=== PATIENT | female | born 1990 | race Caucasian/White ===

== ENCOUNTER 2016-04-10 12:39 | Emergency (ER) | payer OTHER ==
[~2016-04-10] VITALS: Ht 167.6 cm; Wt 70.9 kg
[~2016-04-10 12:39] MED LIST: BUSP-8 PO; OXYC5TAB PO; VENL25TA2 PO
[2016-04-10 12:44] VITALS: TEMP 36.9; Ht 167.6 cm; Wt 70.9 kg
[2016-04-10] MEDS ORDERED: SODIUM CHLORIDE 0.9% 1000ML 1,000 ML IV STA (13:21)
[2016-04-10] MEDS ORDERED: ONDANSETRON INJ 2 MG/ML 2 ML VIAL IV STA (13:21)
[2016-04-10] MEDS ORDERED: KETOROLAC TROMETHAMINE 30 MG/ML VIAL IV STA (13:21)
[2016-04-10] MEDS ORDERED: MoRPHine SULFATE 4 MG/ML 1 ML CARP\\VIAL IV PRN (13:30)
[2016-04-10 13:53] LABS: BASO % 0.1 %; BASO ABS # 0.01 K/uL (0-0.2); COMPLETE YES; EOS % 1.5 %; HEMATOCRIT 41.9 % (37-47); IG% 0.2 %; LYMPH % 28.4 %; LYMPH ABS # 2.48 K/uL (1.2-3.4); MEAN CELL VOLUME 81.5 fL (80-100); MEAN CORPUSCULAR HEMOGLOBIN 26.7 pg (25-34); MEAN CORPUSCULAR HGB CONC 32.7 g/dl (32-36); MEAN PLATELET VOLUME 11.2 fL (7.4-10.4); MONO % 4.1 %; NEUT % 65.7 %; PLATELET COUNT 208 K/uL (130-400); RED BLOOD COUNT 5.14 M/uL (4.2-5.4); WHITE BLOOD COUNT 8.74 K/uL (4.8-10.8)
[2016-04-10 14:10] LABS: BUN/CREATININE RATIO 9.5 (10-20); CREATININE 0.6 mg/dl (0.60-1.20); POTASSIUM 3.9 mmol/L (3.5-5.1)
[2016-04-10] MEDS ORDERED: KETOROLAC TROMETHAMINE 10 MG TAB PO STA (15:28)
[2016-04-10] MEDS ORDERED: PERCOCET HOME PACK PO ONE (15:30)
--- NOTE | 2016-04-10 15:32 | EMERGENCY ROOM VISIT NOTE ---
History Report prepared by Dimitri: Kevin Moreau Under the Supervision of: Dr. Mich Medel D.O. First contact with patient: 13:18 Chief Complaint: ABDOMINAL PAIN Stated Complaint: CRAMPS, HEAVY BLEEDING Nursing Triage Summary: Triage note: pt reports abd cramping and "the pain is also in my lower back, i got my menstral cycle yesterday." History of Present Illness The patient is a 25 year old female who presents to the Emergency Room with complaints of persistent abdominal pain that started yesterday. The patient also complains of heavy bleeding from her menstrual cycle that started yesterday. The patient describes the abdominal pain as cramps that feel like contractions. She notes that this pain in her lower abdomen radiates to her lower back. She denies chance of and notes that she is on time for her regular menstrual cycle noting her last normal menstrual period was a month ago. She notes that the discomfort is worsened by moving and relieved by lying down in the same position. She tried taking pain relievers without any relief of her symptoms. The patient has an appointment with her [employer] Lap Tender tomorrow morning but she presented to the ED today to manage her symptoms. Source of History: patient Onset: yesterday Position: abdomen Quality: cramping ("contractions") Timing: other (persistent) Modifying Factors (Worsening): movement Modifying Factors (Relieving): rest (lying down - same position) Associated Symptoms: + back pain (radiation to lower back) Note: Other associated symptoms: heavy vaginal bleeding Denies: Review of Systems See HPI for pertinent positives & negatives. A total of 10 systems reviewed and were otherwise negative. Past Medical & Surgical Medical Problems: (1) 25 weeks gestation of (2) 40 weeks gestation of (3) Abscess of right thigh (4) Active labor at term (5) Acute bronchitis (6) ASTHMA, UNSPECIFIED (7) Dysmenorrhea (8) Dysmenorrhea (9) Encounter for sterilization (10) FX SACRUM/COCCYX-CLOSED (11) HIDRADENITIS (12) HISTORY OF TOBACCO USE (13) Intrauterine (14) Left leg injury (15) Left leg injury (16) Low back pain with sciatica (17) Low back pain with sciatica (18) Migraine headache (19) Migraine headache (20) Migraine headache (21) MIGRAINE UNSPECIFIED W/O INTRACT MGRN W/O STATUS MIGRAINOSUS (22) OVARIAN CYST NEC/NOS (23) Pelvic pressure in (24) Placenta previa (25) Placenta previa antepartum in second trimester (26) Supervision of other normal (27) Uterine contractions (28) Vaginal bleeding during , antepartum Surgical Problems: (1) Carpal tunnel syndrome of right wrist (2) Foreign body of leg, right, superficial Family History Diabetes mellitus Hypertension Kidney disease Kidney stones Social History Smoking Status: Current Every Day Smoker Alcohol Use: none Drug Use: none Marital Status: in relationship Occupation Status: unemployed Current/Historical Medications No Active Prescriptions or Reported Meds Allergies Coded Allergies: Nitrofurantoin (Verified Allergy, Severe, DIFFICULTY BREATHING, 04/10/16) Sumatriptan (Verified Allergy, Severe, sob,tachycardia,elevated bp, ) Trazodone (Verified Allergy, Mild, ITCHING SENSATION, 04/10/16) Sulfa Antibiotics (Verified Adverse Reaction, Mild, NAUSEA, 04/10/16) Physical Exam Vital Signs Date Time Temp Pulse Resp B/P Pulse Ox O2 Delivery O2 Flow Rate FiO2 04/10/16 14:33 71 18 102/63 98 Room Air 04/10/16 12:44 36.9 100 18 94/69 100 Room Air Physical Exam CONSTITUTIONAL/VITAL SIGNS: Reviewed / noted above. GENERAL: Non-toxic in appearance. INTEGUMENTARY: Warm, dry, and [place]. HEAD: Normocephalic. EYES: without scleral icterus or trauma. ENT/OROPHARYNX: clear and moist. LYMPHADENOPATHY/NECK: Is supple without lymphadenopathy or meningismus. RESPIRATORY: Lungs clear and equal. CARDIOVASCULAR: Regular rate and rhythm. GI/ABDOMEN: Mild tenderness to left lower quadrant. No organomegaly or pulsatile mass. No rebound or guarding. Normal bowel sounds. EXTREMITIES: Warm and well perfused. BACK: No CVA tenderness. NEUROLOGICAL: Intact without focal deficits. PSYCHIATRIC: normal affect. MUSCULOSKELETAL: Normally developed with good muscle tone. Medical Decision & Procedures Laboratory Results 04/10/16 13:42 Red Blood Count 5.14, Mean Corpuscular Volume 81.5, Mean Corpuscular Hemoglobin 26.7, Mean Corpuscular Hemoglobin Concent 32.7, Mean Platelet Volume 11.2, Neutrophils (%) (Auto) 65.7, Lymphocytes (%) (Auto) 28.4, Monocytes (%) (Auto) 4.1, Eosinophils (%) (Auto) 1.5, Basophils (%) (Auto) 0.1, Neutrophils # (Auto) 5.74, Lymphocytes # (Auto) 2.48, Monocytes # (Auto) 0.36, Eosinophils # (Auto) 0.13, Basophils # (Auto) 0.01 04/10/16 13:42 Test 04/10/16 13:42 White Blood Count 8.74 K/uL (4.8-10.8) Red Blood Count 5.14 M/uL (4.2-5.4) Hemoglobin 13.7 g/dL (12.0-16.0) Hematocrit 41.9 % (37-47) Mean Corpuscular Volume 81.5 fL (80-100) Mean Corpuscular Hemoglobin 26.7 pg (25-34) Mean Corpuscular Hemoglobin Concent 32.7 g/dl (32-36) Platelet Count 208 K/uL (130-400) Mean Platelet Volume 11.2 fL (7.4-10.4) Neutrophils (%) (Auto) 65.7 % Lymphocytes (%) (Auto) 28.4 % Monocytes (%) (Auto) 4.1 % Eosinophils (%) (Auto) 1.5 % Basophils (%) (Auto) 0.1 % Neutrophils # (Auto) 5.74 K/uL (1.4-6.5) Lymphocytes # (Auto) 2.48 K/uL (1.2-3.4) Monocytes # (Auto) 0.36 K/uL (0.11-0.59) Eosinophils # (Auto) 0.13 K/uL (0-0.5) Basophils # (Auto) 0.01 K/uL (0-0.2) RDW Standard Deviation 43.3 fL (36.4-46.3) RDW Coefficient of Variation 14.5 % (11.5-14.5) Immature Granulocyte % (Auto) 0.2 % Immature Granulocyte # (Auto) 0.02 K/uL (0.00-0.02) Urine Test NEG (NEG) Anion Gap 11.0 mmol/L (3-11) Est Creatinine Clear Calc Drug Dose 134.1 ml/min Estimated GFR () 146.8 Estimated GFR (Non- 126.7 BUN/Creatinine Ratio 9.5 (10-20) Calcium Level 9.0 mg/dl (8.5-10.1) Laboratory results as stated above per my review. Medications Administered Medications (Trade) Dose Ordered Sig/Cory Route Start Time Stop Time Status Last Admin Dose Admin Sodium Chloride (Nss 1000ml) 1,000 ml @ 999 mls/hr Q1H1M STAT IV 04/10/16 13:21 04/10/16 14:21 DC 04/10/16 13:52 999 MLS/HR Ondansetron HCl (Zofran Inj) 4 mg NOW STAT IV 04/10/16 13:21 04/10/16 13:23 DC 04/10/16 13:52 4 MG Ketorolac Tromethamine (Toradol Inj) 30 mg NOW STAT IV 04/10/16 13:21 04/10/16 13:23 DC 04/10/16 13:53 30 MG Morphine Sulfate (MoRPHine SULFATE INJ) 4 mg Q1H PRN IV 04/10/16 13:30 04/24/16 13:29 04/10/16 14:33 4 MG ED Course 1315: Previous medical records were reviewed. The patient was evaluated in room C1. A complete history and physical examination was performed. 1321: Ordered Toradol Inj 30 mg IV, Zofran Inj 4 mg IV, NSS 1000 ml @ 999 mls/ hr IV. 1330: Ordered Morphine Sulfate 4 mg IV/pain. 1526: On reevaluation, the patient is resting comfortably. I discussed the results and findings with the patient. She verbalized agreement of the treatment plan. She was discharged home. Medical Decision Differential diagnosis: Etiologies such as ectopic , dysfunction uterine bleeding, bleeding dyscrasia, trauma, infection, as well as others were entertained. Is a 25-year-old female who presents to the ED with a chief complaint of bad menstrual cramps. The patient states that her symptoms started yesterday. She reports a history of tubal ligation. Her last menstrual period was about one month ago exactly. Her vital signs are stable. Her physical exam was unremarkable. CBC and PRP are normal. She is not . The patient was treated with IV Toradol and IV morphine. She has an appointment to see her trapeze performer tomorrow. She is felt to be stable for discharge. Impression Primary Impression: Abnormal uterine bleeding Scribe Attestation The scribe's documentation has been prepared under my direction and personally reviewed by me in its entirety. I confirm that the note above accurately reflects all work, treatment, procedures, and medical decision making performed by me. Departure Information Dispostion Home / Self-Care Prescriptions No Active Prescriptions or Reported Meds Referrals Kin Lutz M.D. (PCP) Forms HOME CARE DOCUMENTATION FORM, IMPORTANT VISIT INFORMATION Patient Instructions My [facility] Additional Instructions See your trapeze performer tomorrow as scheduled.
[2016-04-10] MEDS ORDERED: KETOROLAC TROMETHAMINE 10 MG TAB PO ONE (16:04)
[2016-04-10 16:33] VITALS: BP 94/58; PULSE 58; O2SAT 97
[2016-07-17] MEDS ORDERED: ABL/5 PO (11:48)
== END 2016-04-10 16:34 | disposition home or self-care (01) ==
LOC: C.EDB 12:40 → C.EDC 16:34
DX: N93.9 Abnormal uterine and vaginal bleeding, unspecified (principal); F17.200 Nicotine dependence, unspecified, uncomplicated; J45.909 Unspecified asthma, uncomplicated

== ENCOUNTER → 2016-04-21 | Outpatient (CLI) | payer OTHER ==
[~2016-04-21] MED LIST changes: +ABL/5 PO; +ACET-1256 PO; +AMOX875T PO; -BUSP-8 PO; +CEPH500C PO; +CEPH500C2 PO; +CLIN300C2 PO; +CYCL10TA6 PO; +IBUP-1427 PO; -OXYC5TAB PO; -VENL25TA2 PO
--- NOTE | 2016-04-21 12:51 | MAMMOGRAPHY REPORT ---
ULTRASOUND OF RIGHT BREAST: 04/21/2016 CLINICAL HISTORY: The patient reports a history of surgery involving her right subareolar region due to an abscess in 2012. She reports a lump under her right nipple as well as whitish nipple dischar ge. She reports that she had some of her discharge tested one month ago which yielded staph bacteri a and she was placed on antibiotics. She denies any breast erythema. COMPARISON: Prior ultrasound dated 11/12/2011. TECHNIQUE: Real-time targeted ultrasound of the right breast was performed. FINDINGS: Real-time, high resolution targeted ultrasound was performed of the subareolar breast inc luding the area of the palpable lump pointed out by the patient, in the right 2 to 3:00 subareolar b reast. At the site of the palpable lump pointed out by the patient in the left 2 to 3:00 subareolar breast, there is thickening of the areola as well as a small oval hypoechoic circumscribed 6 x 2 x 5 mm mass which appears to be within the areola. No internal vascularity is seen within the mass. This is located at the site of the patient's scar from her prior surgery for an abscess. The mass i s benign and may represent a small residual postsurgical fluid collection versus a small abscess. N o mass or fluid collection is seen within the underlying breast parenchyma. IMPRESSION: ACR BI-RADS CATEGORY 2: BENIGN Thickening of the areola in the right 2 to 3:00 subareolar breast at the site of prior surgery. An associated oval 6 mm hypoechoic mass is seen within the areola, which is benign and may represent po stsurgical changes such as a small residual postsurgical fluid collection; alternatively this could represent a small abscess, given the history of recent nipple discharge yielding Staph bacteria. Re commend clinical follow-up. There is no sonographic evidence of malignancy. Jerilyn Fontanez M.D. ah/:04/21/2016 12:38:25 Attending Technologist: Bradly HERNANDEZ)(M), [facility] Database Technician: Jerilyn Fontanez MD, [facility] letter sent: Normal 1/2 BI-RADS Code: ACR BI-RADS Category 2: Benign
== END | disposition home or self-care (01) ==
LOC: C.MAMM 10:48
PROVIDERS: ATTEND Family Medicine
DX: N63 Unspecified lump in breast (principal); N64.52 Nipple discharge

== ENCOUNTER 2016-05-21 18:13 | Emergency (ER) | payer OTHER ==
[~2016-05-21] VITALS: Ht 167.6 cm; Wt 70.8 kg
[2016-05-21 18:16] VITALS: BP 125/78; PULSE 80; TEMP 37.1; O2SAT 98; Ht 167.6 cm; Wt 70.8 kg
[2016-05-21] MEDS ORDERED: ACET-1256 PO (18:26)
[2016-05-21] MEDS ORDERED: CEPHALEXIN MONOHYDRATE 250 MG CAP PO ONE (18:45)
--- NOTE | 2016-05-21 18:53 | EMERGENCY ROOM VISIT NOTE ---
ED Visit Note First contact with patient: 18:28 CHIEF COMPLAINT: Infection on the right upper thigh HISTORY OF PRESENT ILLNESS: This 26-year-old female presents the ER with chief complaint of a lump which is erythematous on the upper medial aspect of her right thigh. The patient states that she noticed it 3 days ago. She denies any drainage from it. She has had these in the past. REVIEW OF SYSTEMS: 6 system review was performed and was negative unless stated otherwise in history of present illness. PMH: The patient is healthy; tubal ligation SOCIAL HISTORY: Patient admits to tobacco use but denies any alcohol use PHYSICAL EXAM: Vital Signs: Were reviewed Reviewed Nurse's notes. GEN.: Positional white female appears in no acute distress. MENTAL STATUS: Alert and oriented 3. RIGHT THIGH: On the upper inner thigh there is an erythematous firm lump which measures approximately 2 cm x 1 cm. There is no central fluctuance, pointing or drainage. There is no surrounding erythema. EMERGENCY DEPARTMENT COURSE: The patient was evaluated. I informed the patient that at this point there is no central fluctuance therefore we will not be draining the small abscess. The patient verbalized understanding. The patient is given Keflex 500 mg while in the ER. DIAGNOSIS: Abscess of the right groin DISCHARGE INSTRUCTIONS & TREATMENT: Warm compresses 20 minutes several times a day. Ibuprofen 600 mg every 6 hours with food for pain. Take Keflex as prescribed. If symptoms persist or worsen, return to ER. Problem List Medical Problems: (1) 40 weeks gestation of Status: Resolved (2) Abscess of right thigh Status: Resolved (3) Active labor at term Status: Resolved (4) Acute bronchitis Status: Resolved (5) ASTHMA, UNSPECIFIED Status: Chronic (6) Dysmenorrhea Status: Resolved (7) Dysmenorrhea Status: Resolved (8) FX SACRUM/COCCYX-CLOSED Status: Resolved (9) HIDRADENITIS Status: Chronic (10) HISTORY OF TOBACCO USE Status: Chronic (11) Intrauterine Status: Resolved (12) Left leg injury Status: Resolved (13) Left leg injury Status: Resolved (14) Low back pain with sciatica Status: Resolved (15) Low back pain with sciatica Status: Chronic (16) Migraine headache Status: Resolved (17) Migraine headache Status: Resolved (18) Migraine headache Status: Chronic (19) MIGRAINE UNSPECIFIED W/O INTRACT MGRN W/O STATUS MIGRAINOSUS Status: Resolved (20) OVARIAN CYST NEC/NOS Status: Resolved (21) Supervision of other normal Status: Resolved (22) Uterine contractions Status: Resolved Surgical Problems: (1) Carpal tunnel syndrome of right wrist Status: Resolved (2) Foreign body of leg, right, superficial Status: Resolved Current/Historical Medications Scheduled Acetaminophen (Tylenol), 1,000 MG PO Q6 Allergies Coded Allergies: Nitrofurantoin (Verified Allergy, Severe, DIFFICULTY BREATHING, 04/10/16) Sumatriptan (Verified Allergy, Severe, sob,tachycardia,elevated bp, ) Trazodone (Verified Allergy, Mild, ITCHING SENSATION, 04/10/16) Sulfa Antibiotics (Verified Adverse Reaction, Mild, NAUSEA, 04/10/16) Vital Signs Date Time Temp Pulse Resp B/P Pulse Ox O2 Delivery O2 Flow Rate FiO2 05/21/16 18:16 37.1 80 18 125/78 98 Room Air Medications Administered Medications (Trade) Dose Ordered Sig/Cory Route Start Time Stop Time Status Last Admin Dose Admin Cephalexin Monohydrate (Keflex Cap) 500 mg NOW ONCE PO 05/21/16 18:45 05/21/16 18:46 DC 05/21/16 18:39 500 MG Departure Information Referrals No Doctor, Assigned (PCP) Patient Instructions [facility]
[2016-05-21] MEDS ORDERED: CEPH500C2 PO (18:54)
[2016-07-17] MEDS ORDERED: ABL/5 PO (11:48)
== END 2016-05-21 19:07 | disposition home or self-care (01) ==
LOC: C.EDB 18:13 → C.EDD 19:07
DX: L02.214 Cutaneous abscess of groin (principal); J45.909 Unspecified asthma, uncomplicated

== ENCOUNTER 2016-05-27 11:46 | Emergency (ER) | payer OTHER ==
[~2016-05-27] VITALS: Ht 167.6 cm; Wt 69.8 kg
[~2016-05-27 11:46] MED LIST changes: -ABL/5 PO; -AMOX875T PO; -CEPH500C PO; -CLIN300C2 PO; -CYCL10TA6 PO; -IBUP-1427 PO
[2016-05-27 11:47] VITALS: BP 131/90; TEMP 36.8; Ht 167.6 cm; Wt 69.8 kg
[2016-05-27] MEDS ORDERED: CYCL10TA6 PO (12:21)
[2016-05-27] MEDS ORDERED: IBUP-1427 PO (12:21)
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
[2016-05-27] MEDS ORDERED: CYCLOBENZAPRINE HCL 5 MG TAB PO ONE (12:30)
[2016-05-27 12:36] VITALS: PULSE 98; O2SAT 98
[2016-07-17] MEDS ORDERED: ABL/5 PO (11:48)
== END 2016-05-27 12:36 | disposition home or self-care (01) ==
LOC: C.EDB 11:47 → C.EDD 12:36
DX: S39.012A Strain of muscle, fascia and tendon of lower back, initial encounter (principal); V47.5XXA Car driver injured in collision with fixed or stationary object in traffic accident, initial encounter; G89.29 Other chronic pain; J45.909 Unspecified asthma, uncomplicated; Z83.3 Family history of diabetes mellitus; Z82.49 Family history of ischemic heart disease and other diseases of the circulatory system; F17.210 Nicotine dependence, cigarettes, uncomplicated

== ENCOUNTER 2016-05-29 09:09 | Emergency (ER) | payer OTHER ==
[~2016-05-29] VITALS: Ht 167.6 cm; Wt 69.7 kg
[~2016-05-29 09:09] MED LIST changes: +CYCL10TA6 PO; +IBUP-1427 PO
[2016-05-29 09:14] VITALS: TEMP 36.6; Ht 167.6 cm; Wt 69.7 kg
[2016-05-29] MEDS ORDERED: OXYCODONE HCL IR 5 MG TAB (IMMEDIATE RELEASE) PO STA (09:33)
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
[2016-05-29 10:03] LABS: URINE APPEARANCE CLOUDY (CLEAR); URINE BILIRUBIN NEG (NEG); URINE COLOR YELLOW; URINE EPITHELIAL CELL AUTO >30 /lpf (0-5); URINE NITRITE NEG (NEG); URINE PH 6.5 (4.5-7.5); UROBILINOGEN NEG (NEG)
[2016-05-29 10:12] LABS: MANUAL MICROSCOPIC REQUIRED? NO; REVIEW REQ? NO
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
[2016-05-29 11:37] VITALS: BP 90/60; PULSE 66; O2SAT 100
[2016-05-29] MEDS ORDERED: OXYCODONE IR HOME PACK PO ONE (11:45)
[2016-07-17] MEDS ORDERED: ABL/5 PO (11:48)
== END 2016-05-29 11:37 | disposition home or self-care (01) ==
LOC: C.EDB 09:11
DX: S39.012D Strain of muscle, fascia and tendon of lower back, subsequent encounter (principal); V89.2XXD Person injured in unspecified motor-vehicle accident, traffic, subsequent encounter; G89.29 Other chronic pain; Z98.51 Tubal ligation status; J45.909 Unspecified asthma, uncomplicated; Z83.3 Family history of diabetes mellitus; Z82.49 Family history of ischemic heart disease and other diseases of the circulatory system; F17.210 Nicotine dependence, cigarettes, uncomplicated

== ENCOUNTER 2016-07-03 19:04 | Emergency (ER) | payer OTHER ==
[~2016-07-03] VITALS: Ht 167.6 cm; Wt 69.6 kg
[~2016-07-03 19:04] MED LIST changes: -CEPH500C2 PO; -CYCL10TA6 PO
[2016-07-03 19:10] VITALS: TEMP 37.1; Ht 167.6 cm; Wt 69.6 kg
[2016-07-03] MEDS ORDERED: CLINDAMYCIN HCL 150 MG CAP PO ONE (19:30)
[2016-07-03] MEDS ORDERED: CEPH500C PO (19:37)
[2016-07-03] MEDS ORDERED: CLIN300C2 PO (19:37)
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
[2016-07-03 19:44] VITALS: BP 106/87; PULSE 88; O2SAT 97
[2016-07-17] MEDS ORDERED: ABL/5 PO (11:48)
== END 2016-07-03 19:40 | disposition home or self-care (01) ==
LOC: EDUNIT# 19:04 → C.EDB 19:07 → C.EDA 19:40
DX: L02.215 Cutaneous abscess of perineum (principal); L73.9 Follicular disorder, unspecified; J45.909 Unspecified asthma, uncomplicated; M54.5 Low back pain; G89.29 Other chronic pain; G43.909 Migraine, unspecified, not intractable, without status migrainosus; Z72.0 Tobacco use

== ENCOUNTER → 2016-07-11 | Outpatient (CLI) | payer OTHER ==
[~2016-07-11] MED LIST changes: +ABL/5 PO; +AMOX875T PO; +CEPH500C PO; +CLIN300C2 PO
[2016-07-11 17:40] LABS: HEMATOCRIT 42.2 % (37-47); MEAN CELL VOLUME 86.7 fL (80-100); MEAN CORPUSCULAR HEMOGLOBIN 27.5 pg (25-34); MEAN CORPUSCULAR HGB CONC 31.8 g/dl (32-36); MEAN PLATELET VOLUME 11.8 fL (7.4-10.4); PLATELET COUNT 241 K/uL (130-400); RED BLOOD COUNT 4.87 M/uL (4.2-5.4); WHITE BLOOD COUNT 7.67 K/uL (4.8-10.8)
[2016-07-11 17:50] LABS: PROTHROMBIN TIME (PATIENT) 10.7 SECONDS (9.0-12.0)
[2016-07-11 17:53] LABS: POTASSIUM 3.8 mmol/L (3.5-5.1)
== END | disposition home or self-care (01) ==
LOC: C.LABPVFM 11:12
PROVIDERS: ATTEND Plastic Surgery
DX: Z01.812 Encounter for preprocedural laboratory examination (principal); Z01.818 Encounter for other preprocedural examination

== ENCOUNTER → 2016-07-19 | Outpatient (CLI) | payer OTHER ==
[~2016-07-19] MED LIST changes: -ACET-1256 PO; -IBUP-1427 PO
== END | disposition home or self-care (01) ==
LOC: C.LABPVFM 09:14
PROVIDERS: ATTEND Family Medicine
DX: R39.9 Unspecified symptoms and signs involving the genitourinary system (principal)

== ENCOUNTER 2016-07-24 16:55 | Emergency (ER) | payer OTHER ==
[~2016-07-24] VITALS: Ht 167.6 cm; Wt 69.0 kg
[~2016-07-24 16:55] MED LIST changes: -AMOX875T PO; -CEPH500C PO; -CLIN300C2 PO
[2016-07-24 16:59] VITALS: Ht 167.6 cm; Wt 69.0 kg
--- NOTE | 2016-07-24 17:52 | EMERGENCY ROOM VISIT NOTE ---
History Report prepared by Dimitri: Wilfredo Cadet Under the Supervision of: Dr. Leena Lyles M.D. First contact with patient: 17:38 Chief Complaint: WOUND INFECTION Stated Complaint: INFECTION IN RT BREAST Nursing Triage Summary: pt verbalizes "i have a staff infection in my right breast, i have green discharge coming out of my nipple, its red, and swollen". Pt verbalizes hx of staff infection in breast in 2013, similar symptoms. History of Present Illness The patient is a 26 year old female who presents to the Emergency Room with complaints of persistent right breast pain beginning several hours prior to arrival. She currently rates her discomfort as an 8/10 in severity. The patient complains of green, bloody, smelly discharge from her right breast. She states she was sitting on the couch and experienced burning in her right breast. The patient notes she looked in her shirt and noticed the discharge. She states she has a history of surgery on her right breast for a cyst removal in 2012. The patient notes during the procedure they left a pocket. She states she has a history of a staph infection. The patient denies breast feeding at this time. She notes she just got off a seven day course of Keflex prescribed by her PCP for a possible bladder or kidney infection. The patient states she is still experiencing urinary symptoms at this time. She denies a fever. 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 A total of 6 systems reviewed and were otherwise negative. Past Medical & Surgical Medical Problems: (1) 25 weeks gestation of (2) 40 weeks gestation of (3) Abscess of right thigh (4) Active labor at term (5) Acute bronchitis (6) ASTHMA, UNSPECIFIED (7) Dysmenorrhea (8) Dysmenorrhea (9) Encounter for sterilization (10) FX SACRUM/COCCYX-CLOSED (11) HIDRADENITIS (12) HISTORY OF TOBACCO USE (13) Intrauterine (14) Left leg injury (15) Left leg injury (16) Low back pain with sciatica (17) Low back pain with sciatica (18) Migraine headache (19) Migraine headache (20) Migraine headache (21) MIGRAINE UNSPECIFIED W/O INTRACT MGRN W/O STATUS MIGRAINOSUS (22) OVARIAN CYST NEC/NOS (23) Pelvic pressure in (24) Placenta previa (25) Placenta previa antepartum in second trimester (26) Supervision of other normal (27) Uterine contractions (28) Vaginal bleeding during , antepartum Surgical Problems: (1) Carpal tunnel syndrome of right wrist (2) Foreign body of leg, right, superficial Family History Diabetes mellitus Hypertension Kidney disease Kidney stones Social History Smoking Status: Current Every Day Smoker Alcohol Use: none Drug Use: none Marital Status: in relationship Occupation Status: unemployed Current/Historical Medications Scheduled Aripiprazole (Abilify), 5 MG PO HS Clindamycin Hcl (Cleocin), 300 MG PO TID Allergies Coded Allergies: Nitrofurantoin (Verified Allergy, Severe, DIFFICULTY BREATHING, 07/17/16) Sumatriptan (Verified Allergy, Severe, sob,tachycardia,elevated bp, 07/17/16 ) Trazodone (Verified Allergy, Mild, ITCHING SENSATION, 07/17/16) Sulfa Antibiotics (Verified Adverse Reaction, Mild, NAUSEA, 07/17/16) Physical Exam Vital Signs Date Time Temp Pulse Resp B/P Pulse Ox O2 Delivery O2 Flow Rate FiO2 07/24/16 19:39 89 18 98 Room Air 07/24/16 19:37 36.8 91 18 113/75 98 07/24/16 16:59 36.8 91 18 113/75 98 Room Air Physical Exam Vital signs reviewed. General: Well-appearing female, in no significant distress. HEENT: No scleral icterus, PERRLA, neck supple. Atraumatic. Chest: Right breast has some minimal post-surgical change to the medial nipple line. No significant erythema or fluctuance appreciated. Patient is able to express a serosanguineous fluid with significant effort. Musculoskeletal: Atraumatic, no peripheral edema. Neurologic: Patient awake alert and oriented x 3. Skin: Warm, dry, no rash Medical Decision & Procedures Laboratory Results Test 07/24/16 18:15 Urine Color YELLOW Urine Appearance CLEAR (CLEAR) Urine pH 7.0 (4.5-7.5) Urine Specific [place] 1.018 (1.000-1.030) Urine Protein NEG (NEG) Urine Glucose (UA) NEG (NEG) Urine Ketones NEG (NEG) Urine Occult Blood TRACE (NEG) Urine Nitrite NEG (NEG) Urine Bilirubin NEG (NEG) Urine Urobilinogen NEG (NEG) Urine Leukocyte Esterase NEG (NEG) Urine WBC (Auto) 1-5 /hpf (0-5) Urine RBC (Auto) 5-10 /hpf (0-4) Urine Hyaline Casts (Auto) 1-5 /lpf (0-5) Urine Epithelial Cells (Auto) >30 /lpf (0-5) Urine Bacteria (Auto) NEG (NEG) Urine Test NEG (NEG) Laboratory results per my review. ED Course 1739: Past medical records reviewed. The patient was evaluated in room B5. A complete history and physical examination was performed. 1914: Upon reevaluation, the patient appeared to have improvement of her symptoms. I discussed findings with her. She verbalized agreement of the treatment plan. The patient was discharged home. Medical Decision The differential diagnoses include but are not limited to: mastitis, cellulitis , folliculitis. This patient was evaluated and appeared to be in no significant distress. Physical examination reveals some discharge from the right nipple after significant efforts at express again. A culture was obtained. The patient recently completed a course of Keflex. She will be placed on clindamycin pending wound cultures. She has follow-up appointment with breast surgery, Dr. Shah. She will return to the ER for worsening of symptoms or any medical concerns. Impression Primary Impression: Breast discharge Scribe Attestation The scribe's documentation has been prepared under my direction and personally reviewed by me in its entirety. I confirm that the note above accurately reflects all work, treatment, procedures, and medical decision making performed by me. Departure Information Dispostion Home / Self-Care Prescriptions Clindamycin Hcl (CLEOCIN) 300 Mg Cap 300 MG PO TID for 7 Days, #21 CAP Prov: Leena Lyles M.D. 07/24/16 Referrals Alex Phelps M.D. (PCP) Forms HOME CARE DOCUMENTATION FORM, IMPORTANT VISIT INFORMATION, WORK / SCHOOL INSTRUCTIONS Patient Instructions My [facility] Additional Instructions Diagnosis: Breast discharge Clindamycin 300 mg three times daily for 7 days. Warm compresses Follow up with Dr Shah Return to emergency for worsening of symptoms or any medical concerns.
[2016-07-24 18:40] LABS: URINE APPEARANCE CLEAR (CLEAR); URINE BILIRUBIN NEG (NEG); URINE COLOR YELLOW; URINE EPITHELIAL CELL AUTO >30 /lpf (0-5); URINE NITRITE NEG (NEG); URINE SPECIFIC GRAVITY 1.018 (1.000-1.030); UROBILINOGEN NEG (NEG); ZZUR CULT IF INDIC CLEAN CATCH NO
[2016-07-24 18:42] LABS: MANUAL MICROSCOPIC REQUIRED? NO; REVIEW REQ? NO
[2016-07-24] MEDS ORDERED: CLIN300C2 PO (18:49)
[2016-07-24 19:37] VITALS: BP 113/75; TEMP 36.8
[2016-07-24 19:39] VITALS: PULSE 89; O2SAT 98
== END 2016-07-24 19:38 | disposition home or self-care (01) ==
LOC: C.EDB 16:55
DX: N64.52 Nipple discharge (principal); J45.909 Unspecified asthma, uncomplicated; G43.909 Migraine, unspecified, not intractable, without status migrainosus; Z83.3 Family history of diabetes mellitus; Z82.49 Family history of ischemic heart disease and other diseases of the circulatory system; Z84.1 Family history of disorders of kidney and ureter; F17.210 Nicotine dependence, cigarettes, uncomplicated

== ENCOUNTER → 2016-08-01 | Day surgery (SDC) | payer OTHER ==
[2016-07-17 11:48] VITALS: Ht 167.6 cm; Wt 68.2 kg
[~2016-08-01] VITALS: Ht 167.6 cm; Wt 68.2 kg
[~2016-08-01] MED LIST changes: +ACETAMINOPHEN 325 MG TAB PO PRN; +AMOX875T PO; +ATROPINE SULFATE 0.1 MG/ML 5ML SYR IV PRN; +BUPIVACAINE 0.25% 2.5MG/ML PF 10 ML VIAL INFIL ONE; +CEFAZOLIN 2000 MG/60 ML D5W IV SCH; +CEPH500C PO; +CLIN300C2 PO; +DEXAMETHASONE SOD INJ 4 MG/ML VIAL ONE; +EpHEDrine SULFATE INJ 50 MG/ML AMP IV PRN; +FENTANYL CITRATE INJ 50 MCG/1 ML 2 ML VIAL IV PRN; +FENTANYL CITRATE INJ 50 MCG/1 ML 2 ML VIAL ONE; +LACTATED RINGER'S 1000ML 1,000 ML IV SCH; +LIDOCAINE HCL 2% 2 ML VIAL (20MG/ML) ONE; +MIDAZOLAM HCL 1 MG/ML 2ML VIAL ONE; +ONDANSETRON INJ 2 MG/ML 2 ML VIAL IV PRN; +ONDANSETRON INJ 2 MG/ML 2 ML VIAL ONE; +PROPOFOL IV EMULSION 10 MG/ML 20 ML VIAL IV ONE
--- NOTE | 2016-08-01 09:14 | History & Physical Bridge - SC ---
H&P Re-Evaluation Bridge Note: I have examined the patient, reviewed the History & Physical and in the interval since the performance of the History & Physical I have noted the following changes of clinical significance: Patient started on Abilify since preop visit. Did not take it last night.
--- NOTE | 2016-08-01 10:12 | [facility] Post Operative Brief Note ---
Immediate Operative Summary Operative Date August 01, 2016. Pre-Operative Diagnosis Abscess of epidermal cyst left thigh and right groin Post-Operative Diagnosis same as preop diagnosis Procedure(s) Performed Right And Left Thigh Excision Of Cyst Surgeon Dr. 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
[2016-08-01 10:21] VITALS: TEMP 36.7
[2016-08-01] MEDS: LIDOCAINE/EPINEPHRINE 1% INJ 50 ML VIAL ONE ×2 (10:21→10:23)
--- NOTE | 2016-08-01 10:34 | Discharge Instructions-SurgCtr ---
Discharge Instructions Date of Service August 01, 2016. Visit Reason for Visit: Abscess Of Epidermal Cyst Discharge Discharge Diagnosis / Problem: epidermal cysts of bilateral thighs Discharge Goals Goal(s): Decrease discomfort, Improve function Activity Recommendations Activity Limitations: resume your previous activity Exercise/Sports Limitations: as tolerated May Resume Sexual Activity: when tolerated Shower/Bathe: may shower/bathe in 3 days (may shower after seen in office) Anesthesia . Post Anesthesia Instructions: If you have had General Anesthesia or IV Sedation: * Do not drive today. * Resume driving when surgeon permits. * Do not make important decisions or sign legal documents today. * Call surgeon for: 1. Temperature elevations greater than 101 degrees F. 2. Uncontrollable pain. 3. Excessive bleeding. 4. Persistent nausea and vomiting. 5. Medication intolerance (nausea, vomiting or rash). * For nausea and vomiting use only clear liquids such as: tea, soda, bouillon until nausea subsides, then gradually increase diet as tolerated. * If you have any concerns or questions, call your surgeon's office. If physician is unavailable and it is an emergency, call 911 or go to the nearest emergency room. . Instructions / Follow-Up Instructions / Follow-Up ACTIVITY RECOMMENDATIONS: _x_Normal activities __No bending, lifting or straining __No driving _x_Driving allowed when you are off pain medications __Walking permitted __You should have help at home for ___ days DRESSINGS: __No dressings required _x_Keep dressings dry/in place until first office visit __Remove dressings ___ and leave dressings off _x_Apply ice 2__ days __Remove dressings and reapply garment __Apply antibiotic ointment (Bacitracin, Neosporin, etc) to wounds 3-4 times/ day for 10 days BATHING: _x_Keep dressings dry __Sponge bathing permitted __Showering permitted __No swimming, hot tubs or soaking in a tub MEDICATIONS: Resume previous medications unless instructed otherwise by your surgeon. _x_Do not use aspirin, Motrin, Advil or Ibuprofen as these may promote bleeding. Please use Tylenol. _x_Prescription(s) provided: OTHER INSTRUCTIONS: __Record drain output 2-3 times per day SPECIAL CARE INSTRUCTIONS: * It is normal to have a mild fever after surgery. If your temperature is higher than 101.5 degrees F, please call the office at [phone]. * Constipation is a typical side effect of pain medication. An over-the- counter stool softener will help relieve this. * Leaking around surgical drains may occur and should not cause concern. Sometimes these drains become clogged. If this happens, remove the bulb and milk the clot out of the tube, then replace the bulb. * Drainage from wounds after liposuction is normal and should be expected. Garments will become soiled. You should protect furniture and bedding. This drainage should mostly subside within 2-3 days. Leave garments in place unless instructed to remove them. * If you have unusual drainage from a wound or are concerned you have an infection or have any questions or concerns, please call the office at [phone]. FOLLOW UP VISIT: If not already scheduled, please call the office, , when you return home after surgery to schedule an appointment to be seen in __2_ days. Diet Recommendations Home Diet: resume previous diet Procedures Procedures Performed: Right And Left Thigh Excision Of Cyst Pending Studies Studies pending at discharge: yes List of pending studies: pathology Medical Emergencies . Who to Call and When: Medical Emergencies: If at any time you feel your situation is an emergency, please call 911 immediately. . Non-Emergent Contact Non-Emergency issues call your: Primary Care Provider . . "Provider Documentation" section prepared by Mari Benz. . [place] Drug Monitoring Program Search Results: patient reviewed within database, no issues identified
--- NOTE | 2016-08-01 10:43 | Anesthesia Progress Nt - [facility] ---
Anesthesia Post Op Note Date & Time August 01, 2016 at 10:44 Vital Signs Pain Intensity: 9 Vital Signs Past 12 Hours Date Time Temp Pulse Resp B/P Pulse Ox O2 Delivery O2 Flow Rate FiO2 08/01/16 10:21 36.7 67 16 110/71 95 Room Air 08/01/16 07:44 36.9 78 20 107/73 98 Room Air Notes Mental Status: alert / awake / arousable, participated in evaluation Pt Amnestic to Procedure: Yes Nausea / Vomiting: adequately controlled Pain: adequately controlled Airway Patency, RR, SpO2: stable & adequate BP & HR: stable & adequate Hydration State: stable & adequate Anesthetic Complications: no major complications apparent
[2016-08-01 10:51] VITALS: BP 114/69; PULSE 64; O2SAT 97
--- NOTE | 2016-08-01 14:15 | OPERATIVE REPORT ---
DATE OF OPERATION: 08/01/2016 PREOPERATIVE DIAGNOSIS: Bilateral thigh cysts. POSTOPERATIVE DIAGNOSIS: Same. PROCEDURE: Excision of cysts, bilateral thighs. SURGEON: Dr. Mari Benz. CLASSIFICATION COUNSELOR: None. ANESTHESIA: Local with sedation. COMPLICATIONS: None. INDICATION FOR THE PROCEDURE: The patient is a 26-year-old smoker who has developed multiple recurrent epidermal cysts and abscesses. She was referred to me regarding a cyst of her right upper thigh/groin that had been incised and drained twice and continued to recur. Additionally, she noted a cystic lesion on her left thigh which also drained periodically. She desired excision. Due to significant anxiety, she requested to have this performed with sedation. BRIEF DESCRIPTION OF THE PROCEDURE: The risks, benefits and alternatives of the procedure were explained to the patient who agreed and signed consent. She was identified and marked in the preoperative holding area. She was brought to the operating room where she was positioned supine and placed under sedation without incident. Surgical site was prepped and draped sterilely. A time-out procedure was performed. Both lesions were marked for excision and anesthetized with a 50:50 mix of 1% lidocaine with epinephrine and 0.25% Marcaine plain. I began with the left side. An elliptical incision was made around the cystic nodule and central pore. Just deep to skin, a cyst capsule was identified and carefully dissected and removed in its entirety. The cyst measured 2 x 1.5 cm. Hemostasis was achieved with electrocautery. Wound edges were undermined to facilitate closing. A 3-0 Vicryl interrupted deep dermal sutures were placed followed by 4-0 Monocryl running subcuticular suture. Total wound closure length was 3 cm. Attention was then turned to the right side. There was no palpable cyst present, but there were 2 fairly large parallel incision and drainage scars. In order to ensure complete removal of any underlying capsule, an ellipse was made around these 2 scars together. A 15 blade scalpel was used to make this incision. Dissection was carried into the underlying subcutaneous fat. No evidence for cystic structure within the deeper subcutaneous tissues. Scar was removed. Hemostasis was achieved with electrocautery. Wound was reapproximated using 3-0 Vicryl interrupted dermal sutures and 4-0 Monocryl running subcuticular suture. Total wound closure length was 5.5 cm. Dermabond was applied to both incisions. Dry dressings were placed. The patient was awakened and transferred to recovery room in satisfactory condition. I attest to the content of the Intraoperative Record and any orders documented therein. Any exceptio ns are noted below.
== END | disposition home or self-care (01) ==
LOC: X.SURG 07:33
PROVIDERS: ATTEND Plastic Surgery
DX: L72.0 Epidermal cyst (principal); Z88.2 Allergy status to sulfonamides; F17.200 Nicotine dependence, unspecified, uncomplicated; Z98.818 Other dental procedure status; Z90.89 Acquired absence of other organs; Z98.51 Tubal ligation status; Z83.3 Family history of diabetes mellitus; Z82.0 Family history of epilepsy and other diseases of the nervous system; Z82.49 Family history of ischemic heart disease and other diseases of the circulatory system

== ENCOUNTER 2016-09-07 13:31 | Emergency (ER) | payer OTHER ==
[~2016-09-07] VITALS: Ht 167.6 cm; Wt 70.0 kg
[~2016-09-07 13:31] MED LIST changes: -ACETAMINOPHEN 325 MG TAB PO PRN; -AMOX875T PO; -ATROPINE SULFATE 0.1 MG/ML 5ML SYR IV PRN; -BUPIVACAINE 0.25% 2.5MG/ML PF 10 ML VIAL INFIL ONE; -CEFAZOLIN 2000 MG/60 ML D5W IV SCH; -CEPH500C PO; -CLIN300C2 PO; -DEXAMETHASONE SOD INJ 4 MG/ML VIAL ONE; -EpHEDrine SULFATE INJ 50 MG/ML AMP IV PRN; -FENTANYL CITRATE INJ 50 MCG/1 ML 2 ML VIAL IV PRN; -FENTANYL CITRATE INJ 50 MCG/1 ML 2 ML VIAL ONE; -LACTATED RINGER'S 1000ML 1,000 ML IV SCH; -LIDOCAINE HCL 2% 2 ML VIAL (20MG/ML) ONE; -MIDAZOLAM HCL 1 MG/ML 2ML VIAL ONE; -ONDANSETRON INJ 2 MG/ML 2 ML VIAL IV PRN; -ONDANSETRON INJ 2 MG/ML 2 ML VIAL ONE; -PROPOFOL IV EMULSION 10 MG/ML 20 ML VIAL IV ONE
[2016-09-07 13:53] VITALS: TEMP 36.7; Ht 167.6 cm; Wt 70.0 kg
[2016-09-07] MEDS ORDERED: SODIUM CHLORIDE 0.9% 1000ML 1,000 ML IV STA (13:57)
[2016-09-07] MEDS ORDERED: CEFTRIAXONE SOD INJ 1 GM ADDVIAL IV STA (14:20)
[2016-09-07] MEDS ORDERED: KETOROLAC TROMETHAMINE 30 MG/ML VIAL IV STA (14:23)
[2016-09-07 14:36] LABS: BASO % 0.1 %; BASO ABS # 0.01 K/uL (0-0.2); COMPLETE YES; EOS % 1.5 %; HEMATOCRIT 39.8 % (37-47); IG% 0.2 %; LYMPH ABS # 2.97 K/uL (1.2-3.4); MEAN CELL VOLUME 85.2 fL (80-100); MEAN CORPUSCULAR HEMOGLOBIN 27.4 pg (25-34); MEAN CORPUSCULAR HGB CONC 32.2 g/dl (32-36); MEAN PLATELET VOLUME 11.5 fL (7.4-10.4); MONO % 4.3 %; NEUT % 59.9 %; PLATELET COUNT 194 K/uL (130-400); RED BLOOD COUNT 4.67 M/uL (4.2-5.4); WHITE BLOOD COUNT 8.74 K/uL (4.8-10.8)
[2016-09-07 14:57] LABS: BUN/CREATININE RATIO 3.2 (10-20); CALCIUM 8.8 mg/dl (8.5-10.1); CREATININE 0.77 mg/dl (0.60-1.20); POTASSIUM 3.5 mmol/L (3.5-5.1)
[2016-09-07] MEDS ORDERED: OXYCODONE HCL IR 5 MG TAB (IMMEDIATE RELEASE) PO STA (15:40)
[2016-09-07] MEDS ORDERED: OXYCODONE IR HOME PACK PO ONE (15:45)
[2016-09-07 15:48] VITALS: BP 112/95; PULSE 98; O2SAT 61
[2016-09-07] MEDS ORDERED: CEPH500C PO (16:11)
--- NOTE | 2016-09-07 20:11 | EMERGENCY ROOM VISIT NOTE ---
History Report prepared by Dimitri: Elsa Weinberg Under the Supervision of: Dr. Neeraj Araiza M.D. First contact with patient: 13:57 Chief Complaint: INFECTION Stated Complaint: RIGHT BREAST INFECTION Nursing Triage Summary: triage note: pt reports right breast suery 08-16-16. pt reports "i was healing but last night it got swollen, red, warm and tender." History of Present Illness The patient is a 26 year old female who presents to the Emergency Room with complaints of an episode of an infection in her right breast starting last night. She notes the pain as a burning sensation. The patient reports that she had surgery 22 days ago on her right breast. She reports she had a fistula in her milk duct that had Staph infection a year ago. The patient reports that it was great until last night. She states that last night it was tender and when she awoke this morning it was swollen and hot. The patient complains of being nauseous. The patient denies fever, chills, rashes, and swelling in her legs. Source of History: patient Onset: last night Position: other (breast) Quality: burning Timing: other (episode) Associated Symptoms: + nausea, No fevers, No chills, No rash Note: The patient denies swelling in her legs. Review of Systems See HPI for pertinent positives and negatives. A total of ten systems were reviewed and were otherwise negative. Past Medical & Surgical Medical Problems: (1) 25 weeks gestation of (2) 40 weeks gestation of (3) Abscess of right thigh (4) Active labor at term (5) Acute bronchitis (6) ASTHMA, UNSPECIFIED (7) Dysmenorrhea (8) Dysmenorrhea (9) Encounter for sterilization (10) FX SACRUM/COCCYX-CLOSED (11) HIDRADENITIS (12) HISTORY OF TOBACCO USE (13) Intrauterine (14) Left leg injury (15) Left leg injury (16) Low back pain with sciatica (17) Low back pain with sciatica (18) Migraine headache (19) Migraine headache (20) Migraine headache (21) MIGRAINE UNSPECIFIED W/O INTRACT MGRN W/O STATUS MIGRAINOSUS (22) OVARIAN CYST NEC/NOS (23) Pelvic pressure in (24) Placenta previa (25) Placenta previa antepartum in second trimester (26) Staph infection (27) Supervision of other normal (28) Uterine contractions (29) Vaginal bleeding during , antepartum Surgical Problems: (1) Carpal tunnel syndrome of right wrist (2) Foreign body of leg, right, superficial (3) Mammary fistula Family History Diabetes mellitus Hypertension Kidney disease Kidney stones Social History Smoking Status: Current Every Day Smoker Alcohol Use: none Drug Use: none Marital Status: in relationship Occupation Status: unemployed Current/Historical Medications Scheduled Cephalexin Monohydrate (Keflex), 500 MG PO QID Allergies Coded Allergies: Nitrofurantoin (Verified Allergy, Severe, DIFFICULTY BREATHING, 08/01/16) Sumatriptan (Verified Allergy, Severe, sob,tachycardia,elevated bp, ) Trazodone (Verified Allergy, Mild, ITCHING SENSATION, 08/01/16) Sulfa Antibiotics (Verified Adverse Reaction, Mild, NAUSEA, 08/01/16) Physical Exam Vital Signs Date Time Temp Pulse Resp B/P (MAP) Pulse Ox O2 Delivery O2 Flow Rate FiO2 09/07/16 15:48 98 18 112/95 61 09/07/16 13:53 36.7 71 18 98/72 98 Room Air Physical Exam GENERAL: Awake, alert, well-appearing, in no distress HENT: Normocephalic, atraumatic. Oropharynx unremarkable. EYES: Normal conjunctiva. Sclera non-icteric. NECK: Supple. No nuchal rigidity. FROM. No JVD. RESPIRATORY: Clear to auscultation. CARDIAC: Regular rate, normal rhythm. Extremities warm and well perfused. Pulses equal. ABDOMEN: Soft, non-distended. No tenderness to palpation. No rebound or guarding. No masses. RECTAL: Deferred. MUSCULOSKELETAL: Chest examination reveals no tenderness. Induration and redness in medial aspect of right nipple, no drainage. The back is symmetrical on inspection without obvious abnormality. There is no CVA tenderness to palpation. No joint edema. LOWER EXTREMITIES: Calves are equal size bilaterally and non-tender. No edema. No discoloration. NEURO: Normal sensorium. No sensory or motor deficits noted. SKIN: No rash or jaundice noted. Medical Decision & Procedures Laboratory Results 09/07/16 14:25 Red Blood Count 4.67, Mean Corpuscular Volume 85.2, Mean Corpuscular Hemoglobin 27.4, Mean Corpuscular Hemoglobin Concent 32.2, Mean Platelet Volume 11.5, Neutrophils (%) (Auto) 59.9, Lymphocytes (%) (Auto) 34.0, Monocytes (%) (Auto) 4.3, Eosinophils (%) (Auto) 1.5, Basophils (%) (Auto) 0.1, Neutrophils # (Auto) 5.23, Lymphocytes # (Auto) 2.97, Monocytes # (Auto) 0.38, Eosinophils # (Auto) 0.13, Basophils # (Auto) 0.01 09/07/16 14:25 Test 09/07/16 14:25 09/07/16 14:32 White Blood Count 8.74 K/uL (4.8-10.8) Red Blood Count 4.67 M/uL (4.2-5.4) Hemoglobin 12.8 g/dL (12.0-16.0) Hematocrit 39.8 % (37-47) Mean Corpuscular Volume 85.2 fL (80-100) Mean Corpuscular Hemoglobin 27.4 pg (25-34) Mean Corpuscular Hemoglobin Concent 32.2 g/dl (32-36) Platelet Count 194 K/uL (130-400) Mean Platelet Volume 11.5 fL (7.4-10.4) Neutrophils (%) (Auto) 59.9 % Lymphocytes (%) (Auto) 34.0 % Monocytes (%) (Auto) 4.3 % Eosinophils (%) (Auto) 1.5 % Basophils (%) (Auto) 0.1 % Neutrophils # (Auto) 5.23 K/uL (1.4-6.5) Lymphocytes # (Auto) 2.97 K/uL (1.2-3.4) Monocytes # (Auto) 0.38 K/uL (0.11-0.59) Eosinophils # (Auto) 0.13 K/uL (0-0.5) Basophils # (Auto) 0.01 K/uL (0-0.2) RDW Standard Deviation 42.8 fL (36.4-46.3) RDW Coefficient of Variation 13.9 % (11.5-14.5) Immature Granulocyte % (Auto) 0.2 % Immature Granulocyte # (Auto) 0.02 K/uL (0.00-0.02) Anion Gap 7.0 mmol/L (3-11) Est Creatinine Clear Calc Drug Dose 103.6 ml/min Estimated GFR () 123.5 Estimated GFR (Non- 106.6 BUN/Creatinine Ratio 3.2 (10-20) Calcium Level 8.8 mg/dl (8.5-10.1) Bedside Lactic Acid Venous 1.04 mmol/L (0.90-1.70) Laboratory results reviewed by me Medications Administered Medications (Trade) Dose Ordered Sig/Cory Route Start Time Stop Time Status Last Admin Dose Admin Sodium Chloride 1,000 ml @ 999 mls/hr Q1H1M STAT IV 09/07/16 13:57 09/07/16 14:57 DC 09/07/16 14:37 999 MLS/HR Ceftriaxone Sodium (Rocephin Inj) 1 gm NOW STAT IV 09/07/16 14:20 09/07/16 14:21 DC 09/07/16 14:48 1 GM Ketorolac Tromethamine (Toradol Inj) 30 mg NOW STAT IV 09/07/16 14:23 09/07/16 14:24 DC 09/07/16 14:49 30 MG Oxycodone HCl (Roxicodone Immediate Rel 5MG Home Pack) 1 homepack UD ONCE PO 09/07/16 15:45 09/07/16 15:46 DC 09/07/16 16:15 1 HOMEPACK Oxycodone HCl (Roxicodone Immediate Rel Tab) 5 mg NOW STAT PO 09/07/16 15:40 09/07/16 15:42 DC 09/07/16 15:47 5 MG ED Course 1357: Ordered NSS 1000 ml @ 999 mls/hr. 1416: The patient was evaluated in room A3. A complete history and physical exam was performed. 1420: Ordered Rocephin Inj 1 gm IV. 1423: Ordered Toradol Inj 30 mg IV. 1540: Ordered Oxycodone HCl 5 mg PO. 1545: Ordered Oxycodone HCl 1 homepack PO. 1554: Discussed the patient's case with Dr. Shah. Dr. Shah reports that she didn't go to post-op yesterday. She recommends that the patient be started on antibiotics, but cautioned against narcotics. We will give some pain medication and advise a follow up. 1612: I reevaluated the patient. Discussed results and discharge instructions: She verbalized understanding and agreement. The patient is ready for discharge. Medical Decision Medication Reconciliation: I attest that I have personally reviewed the patient' s current medication list Blood pressure screening: Patient was found to have normal blood pressure on screening and does not require follow-up. Triage Nursing notes reviewed. The patient's presentation and history were concerning for breast swelling and tenderness. Etiologies such as cellulitis, abscess, MRSA infection, dermatitis, drug eruption,necrotizing fasciitis, as well as others were entertained. The patient was evaluated. His were reviewed. The patient has had problems with breast infections in the past. No MRSA was isolated. The patient has a cellulitis on examination. There is no fluctuance to suggest abscess at this time. Blood work was obtained and was unremarkable. The patient was given a dose of IV Rocephin. She is also given Toradol for pain. She did note that it was still very uncomfortable. She was given a dose of oxycodone orally. She was given a home pack. No prescriptions for pain medication were written. The patient will be started on Keflex. A prescription was sent to her pharmacy. I did consult with her general surgeon. The patient was supposed to be seen yesterday however had to cancel due to family illness. She asked for the patient to call the office to set an appointment so that she can reevaluate her. The patient felt comfortable with the plan. I gave my usual and customary discussion regarding this issue. By the evaluation outlined above other emergent etiologies such as those listed in the differential, as well as others, were deemed relatively unlikely. The patient was educated about the findings as listed above. All questions were answered and the patient was pleased with the treatment. Return instructions were outlined and the patient was discharged in stable condition. The patient was referred to general surgery for follow-up for a recheck of the current condition. Consults Time Called: [phone] Consulting Physician: Dr. Shah Returned Call: [phone] Discussed the patient's case with Dr. Shah. Dr. Shah reports that she didn' t go to post-op yesterday. She recommends that the patient be started on antibiotics, but cautioned against narcotics. We will give some pain medication and advise a follow up. Impression Primary Impression: Cellulitis of right breast Scribe Attestation The scribe's documentation has been prepared under my direction and personally reviewed by me in its entirety. I confirm that the note above accurately reflects all work, treatment, procedures, and medical decision making performed by me. Departure Information Dispostion Home / Self-Care Prescriptions Cephalexin Monohydrate (Keflex) 500 Mg Cap 500 MG PO QID, #40 CAP Prov: Neeraj Araiza MD 09/07/16 Referrals Kin Lutz M.D. (PCP) Forms HOME CARE DOCUMENTATION FORM, IMPORTANT VISIT INFORMATION, WORK / SCHOOL INSTRUCTIONS Patient Instructions My [facility] Additional Instructions Cephalexin(Keflex) 500mg: Take one pill four times daily for 10 days for your skin infection. All antibiotics can cause diarrhea. If this occurs and you feel worse or it does not resolve in 1-2 days follow up with your doctor or return to the Emergency Department as this could be signs of serious underlying problems. Any medication can cause an allergic reaction, stop the pills immediately and return to the ER for rash, hives, breathing difficulties, or swelling. Oxycodone (OxyIR) 5mg: Take 1-2 pills every four hours as needed for breakthrough pain. Avoid alcohol, operating machinery or dangerous equipment, working on ladders or roofs, DRIVING, or situations where being under the influence may be dangerous. It is recommended to use a stool softener such as Colace, 100mg twice daily while taking this medication to avoid constipation. Ibuprofen(Motrin, Advil) may be used for fever or pain. Use 600mg every six hours as needed. Take with food. Avoid using more than 2400mg in a 24 hour period. Do not use 2400mg per day for more than three consecutive days without physician direction. Prolonged inappropriate use can lead to stomach upset or ulcers. (AND/OR) Acetaminophen(Tylenol) may be used for fever or pain. Use 1000mg every six hours as needed. Avoid using more than 4000mg in a 24 hour period. Warm compresses to the affected area 4 times daily for 15-20 minutes. Rest and drink plenty of fluids. Continue current medications. Return to the ER for severe pain, persistent fevers, spreading redness, or any worsening of your condition. Follow up with your surgeon's office tomorrow for a recheck of the current condition.
== END 2016-09-07 16:15 | disposition home or self-care (01) ==
LOC: C.EDB 13:32 → C.EDA 16:15
DX: N61.0 Mastitis without abscess (principal); J45.909 Unspecified asthma, uncomplicated; G43.909 Migraine, unspecified, not intractable, without status migrainosus; Z83.3 Family history of diabetes mellitus; Z82.49 Family history of ischemic heart disease and other diseases of the circulatory system; Z84.1 Family history of disorders of kidney and ureter; F17.210 Nicotine dependence, cigarettes, uncomplicated

== ENCOUNTER 2016-09-18 11:14 | Emergency (ER) | payer OTHER ==
[~2016-09-18] VITALS: Ht 167.6 cm; Wt 68.8 kg
[~2016-09-18 11:14] MED LIST changes: -ABL/5 PO; +CEPH500C PO
[2016-09-18 11:27] VITALS: TEMP 36.8; Ht 167.6 cm; Wt 68.8 kg
[2016-09-18] MEDS ORDERED: CEFTRIAXONE SOD INJ 1 GM ADDVIAL IV STA (13:31)
[2016-09-18 14:05] LABS: BASO % 0.2 %; BASO ABS # 0.02 K/uL (0-0.2); COMPLETE YES; EOS % 1.4 %; HEMATOCRIT 48.1 % (37-47); IG% 0.2 %; LYMPH % 31.4 %; LYMPH ABS # 2.89 K/uL (1.2-3.4); MEAN CELL VOLUME 85.6 fL (80-100); MEAN CORPUSCULAR HGB CONC 31.6 g/dl (32-36); MEAN PLATELET VOLUME 11.5 fL (7.4-10.4); NEUT % 62.8 %; PLATELET COUNT 229 K/uL (130-400); RED BLOOD COUNT 5.62 M/uL (4.2-5.4)
[2016-09-18 14:38] LABS: PREG INTERNAL NEGATIVE QC NEG CLEAR BACKGROUND; PREG INTERNAL POSITIVE QC POS CONTROL LINE
[2016-09-18 14:49] LABS: BUN/CREATININE RATIO 7.4 (10-20); CREATININE 0.6 mg/dl (0.60-1.20); POTASSIUM 4.4 mmol/L (3.5-5.1)
[2016-09-18] MEDS ORDERED: AMOX875T PO (15:01)
--- NOTE | 2016-09-18 15:09 | EMERGENCY ROOM VISIT NOTE ---
History Report prepared by Dimitri: Amish Henderson Under the Supervision of: Dr. Wero Verma M.D. First contact with patient: 13:19 Chief Complaint: INFECTION Stated Complaint: RT BREAST POSSIBLY STILL INFECTED History of Present Illness The patient is a 26 year old female who presents to the Emergency Room with complaints of a worsening right breast infection beginning 10 days ago. She states "I got a fistula cut out of my milk duct" a little over a month ago. She was seen in the ED 1.5 weeks ago for redness and swelling of the area. The patient was started on antibiotics and her pain was treated. She states that her symptoms worsened the day after she was seen previously in the ED. She had the infection drained last week with Dr. Jamil. The patient also complains of nausea. She denies any fevers, vomiting, or chills. She denies any chance of . Source of History: patient Onset: 10 days ago Position: other (right breast) Quality: other (infection) Timing: worsening Associated Symptoms: + nausea, No fevers, No chills, No vomiting Review of Systems See HPI for pertinent positives & negatives. A total of 10 systems reviewed and were otherwise negative. Past Medical & Surgical Medical Problems: (1) 25 weeks gestation of (2) 40 weeks gestation of (3) Abscess of right thigh (4) Active labor at term (5) Acute bronchitis (6) ASTHMA, UNSPECIFIED (7) Dysmenorrhea (8) Dysmenorrhea (9) Encounter for sterilization (10) FX SACRUM/COCCYX-CLOSED (11) HIDRADENITIS (12) HISTORY OF TOBACCO USE (13) Intrauterine (14) Left leg injury (15) Left leg injury (16) Low back pain with sciatica (17) Low back pain with sciatica (18) Migraine headache (19) Migraine headache (20) Migraine headache (21) MIGRAINE UNSPECIFIED W/O INTRACT MGRN W/O STATUS MIGRAINOSUS (22) OVARIAN CYST NEC/NOS (23) Pelvic pressure in (24) Placenta previa (25) Placenta previa antepartum in second trimester (26) Staph infection (27) Supervision of other normal (28) Uterine contractions (29) Vaginal bleeding during , antepartum Surgical Problems: (1) Carpal tunnel syndrome of right wrist (2) Foreign body of leg, right, superficial (3) Mammary fistula Old medical records were reviewed. Nurse's notes were reviewed and I agree with. Denies current or breast-feeding Family History Diabetes mellitus Hypertension Kidney disease Kidney stones Social History Smoking Status: Former Smoker Alcohol Use: none Drug Use: none Marital Status: in relationship Occupation Status: unemployed Current/Historical Medications Scheduled Amoxicillin & Pot Clavulanate (Augmentin 875-125 mg), 875 MG PO BID Cephalexin Monohydrate (Keflex), 500 MG PO QID Allergies Coded Allergies: Nitrofurantoin (Verified Allergy, Severe, DIFFICULTY BREATHING, 08/01/16) Sumatriptan (Verified Allergy, Severe, sob,tachycardia,elevated bp, ) Trazodone (Verified Allergy, Mild, ITCHING SENSATION, 08/01/16) Sulfa Antibiotics (Verified Adverse Reaction, Mild, NAUSEA, 08/01/16) Physical Exam Vital Signs Date Time Temp Pulse Resp B/P (MAP) Pulse Ox O2 Delivery O2 Flow Rate FiO2 09/18/16 13:59 70 16 104/64 99 Room Air 09/18/16 11:27 36.8 89 22 109/71 97 Room Air Physical Exam General: Non ill appearing young female no acute distress HEENT: Normal cephalic atraumatic. Pupils are equal round and reactive to light. Extraocular movements are intact. Oropharynx is pink with moist mucous membranes. No swelling of the mouth lips or tongue. Neck: Supple with a midline trachea. No meningeal signs or stiffness, no JVD or bruits. No Stridor. Chest: Clear to auscultation bilaterally. No wheezes or rhonchi. No increased work of breathing. Breast (in the presence of a female nurse program review director): Breasts are symmetrical. No significant swelling of the right breast. Healing incision lateral to the right nipple with as small amount of yellowish drainage with some purulence. Mild tenderness to palpation. Heart: regular rate and rhythm. Abdomen: Soft nontender, nondistended without rebound guarding or rigidity. Extremities: No cyanosis clubbing or edema. No calf tenderness or assymetry Spine/Back. Non tender to palpation. No CVA tenderness Skin: Good turgor without rashes. Neurologic exam: Cranial nerves two through 12 are intact. Motor and sensation are intact and symmetrical throughout. Medical Decision & Procedures Laboratory Results 09/18/16 13:48 Red Blood Count 5.62, Mean Corpuscular Volume 85.6, Mean Corpuscular Hemoglobin 27.0, Mean Corpuscular Hemoglobin Concent 31.6, Mean Platelet Volume 11.5, Neutrophils (%) (Auto) 62.8, Lymphocytes (%) (Auto) 31.4, Monocytes (%) (Auto) 4.0, Eosinophils (%) (Auto) 1.4, Basophils (%) (Auto) 0.2, Neutrophils # (Auto) 5.77, Lymphocytes # (Auto) 2.89, Monocytes # (Auto) 0.37, Eosinophils # (Auto) 0.13, Basophils # (Auto) 0.02 09/18/16 13:48 Test 09/18/16 13:48 White Blood Count 9.20 K/uL (4.8-10.8) Red Blood Count 5.62 M/uL (4.2-5.4) Hemoglobin 15.2 g/dL (12.0-16.0) Hematocrit 48.1 % (37-47) Mean Corpuscular Volume 85.6 fL (80-100) Mean Corpuscular Hemoglobin 27.0 pg (25-34) Mean Corpuscular Hemoglobin Concent 31.6 g/dl (32-36) Platelet Count 229 K/uL (130-400) Mean Platelet Volume 11.5 fL (7.4-10.4) Neutrophils (%) (Auto) 62.8 % Lymphocytes (%) (Auto) 31.4 % Monocytes (%) (Auto) 4.0 % Eosinophils (%) (Auto) 1.4 % Basophils (%) (Auto) 0.2 % Neutrophils # (Auto) 5.77 K/uL (1.4-6.5) Lymphocytes # (Auto) 2.89 K/uL (1.2-3.4) Monocytes # (Auto) 0.37 K/uL (0.11-0.59) Eosinophils # (Auto) 0.13 K/uL (0-0.5) Basophils # (Auto) 0.02 K/uL (0-0.2) RDW Standard Deviation 42.9 fL (36.4-46.3) RDW Coefficient of Variation 13.7 % (11.5-14.5) Immature Granulocyte % (Auto) 0.2 % Immature Granulocyte # (Auto) 0.02 K/uL (0.00-0.02) Anion Gap 7.0 mmol/L (3-11) Est Creatinine Clear Calc Drug Dose 132.9 ml/min Estimated GFR () 145.8 Estimated GFR (Non- 125.8 BUN/Creatinine Ratio 7.4 (10-20) Calcium Level 9.0 mg/dl (8.5-10.1) Human Chorionic Gonadotropin, Qual NEG (NEG) Laboratory studies as stated above per my review. Medications Administered Medications (Trade) Dose Ordered Sig/Cory Route Start Time Stop Time Status Last Admin Dose Admin Ceftriaxone Sodium (Rocephin Inj) 1 gm NOW STAT IV 09/18/16 13:31 09/18/16 13:32 DC 09/18/16 13:31 1 GM ED Course 1320: Past medical records reviewed. The patient was evaluated in room C2, and a complete history and physical examination were performed. 1331: Ordered Rocephin Inj 1 gm IV. 1404: I reassessed the patient. She is resting comfortably. 1407: I attempted to consult Dr. Shah but she was out of town. 1442: I checked in on the patient. She would like to leave. Ordered Augmentin Tab 875 mg PO. 1450: Upon reevaluation, the patient is resting comfortably. I discussed the results and treatment plan with her. She verbalized agreement of the treatment plan. The patient was discharged home. Medical Decision Differentials include, but are not limited to; abscess, infection, and cellulitis. This patient comes in as described above. She's had problems with right breast infection. She's had 2 surgeries on this. She just finished antibiotics yesterday and feels like her breast is getting tender and enlarged again. On exam, she has no fever and the breast does not wet red or warm or significantly larger than the other side. There is a small amount of drainage with some mild purulence. IV access established was given Rocephin 1 g IV . She's had no white count or fever to suggest infection. I attempted to get a hold of Dr. Shah, her breast surgeon but she is out of town today. I did talk to the on- call surgeon Dr. Leigh who recommended started on antibiotics and have a follow- up with Dr. Shah. The patient is in agreement with this and in fact have an appointment in [address] Shah. I will have her continue to use warm compresses and use Augmentin 875 mg twice a day for 10 days. She was encouraged to return if: increasing pain or redness or warmth or worsening symptoms or any new problems or concerns. She was happy with plan and discharged home. Consults Time Called: 1430 Consulting Physician: Dr. Leigh -General Surgery Returned Call: [phone] Discussed the patient's case with Dr. Leigh. He recommended antibiotic treatments and follow-up with Dr. Shah. Impression Primary Impression: Breast abscess Scribe Attestation The scribe's documentation has been prepared under my direction and personally reviewed by me in its entirety. I confirm that the note above accurately reflects all work, treatment, procedures, and medical decision making performed by me. Departure Information Dispostion Home / Self-Care Prescriptions Amoxicillin & Pot Clavulanate (Augmentin 875-125 mg) 1 Tab Tab 875 MG PO BID for 10 Days, #20 TAB Prov: Wero Verma M.D. 09/18/16 Referrals Gayle Shah MD (PCP) Forms HOME CARE DOCUMENTATION FORM, IMPORTANT VISIT INFORMATION, WORK / SCHOOL INSTRUCTIONS Patient Instructions My [facility] Additional Instructions Rest. Drink plenty of fluids. Use warm compresses Return if: Increasing pain or redness or warmth, fever or chills, worsening of symptoms, any new problems or concerns Use Augmentin 875 mg twice a day for 10 days Follow-up with Dr. Shah on , keep your appointment
[2016-09-18 15:12] VITALS: BP 109/76; PULSE 77; O2SAT 99
[2016-09-18] MEDS ORDERED: AMOXICILLIN/CLAVULANATE TAB 875 MG TAB PO ONE (21:00)
== END 2016-09-18 15:13 | disposition home or self-care (01) ==
LOC: C.EDB 11:19 → C.EDC 15:13
DX: N61.1 Abscess of the breast and nipple (principal); J45.909 Unspecified asthma, uncomplicated; Z87.891 Personal history of nicotine dependence; Z83.3 Family history of diabetes mellitus; Z82.49 Family history of ischemic heart disease and other diseases of the circulatory system; Z84.1 Family history of disorders of kidney and ureter

== ENCOUNTER → 2016-11-07 | Outpatient (CLI) | payer OTHER | END | disposition home or self-care (01) | LOC: C.PAPS 12:03 | PROVIDERS: ATTEND Physician Assistant | DX: Z12.4 Encounter for screening for malignant neoplasm of cervix (principal) ==

== ENCOUNTER → 2016-11-07 | Outpatient (CLI) | payer OTHER | END | disposition home or self-care (01) | LOC: C.LABSPEC 11:43 | PROVIDERS: ATTEND Physician Assistant | DX: R10.2 Pelvic and perineal pain (principal) ==

== ENCOUNTER 2023-09-22 18:04 | Inpatient (IN) ==
--- NOTE | 2023-09-22 18:35 | Emergency Department Note ---
Impression & Plan Complicated urinary tract infection ED Provider Note HISTORY OF PRESENT ILLNESS: Patient is a 33-year-old female presenting with dysuria and right flank pain. Patient presented to the ER 3 days ago but left without being seen. She had provided a urine sample for her urinary frequency and was found to an abnormal bacteria that is resistant to multiple antibiotics. She was called today by the pharmacist and referred to the emergency department, given that she is still having symptoms. Patient reports for the last week she is having right flank pain. She is also been having nausea which she has been using her prescribed Zofran for. She reports she vomited yesterday. She denies any notable fevers at home. She does report dysuria and urinary frequency. She also is complaining of right flank pain that got progressively worse over the last week. She does have an abdominal surgical history significant for hysterectomy. Denies any diarrhea. ROS: as above PHYSICAL EXAM: Constitutional: Patient appears in no acute distress. HENT: Head: Normocephalic and atraumatic. Eyes: EOMI, PERRL Mouth/Throat: Mucous membranes moist. Neck: Trachea midline. Neck supple. Cardiovascular: RRR, No murmurs, rubs or gallops. Intact distal pulses. Pulmonary/Chest: No respiratory distress. Breath sounds clear and equal bilaterally. No wheezes or rales. Abdominal: Abdomen soft, no tenderness, rebound or guarding. Musculoskeletal: No edema, tenderness or deformity noted. Skin: Warm and dry. No rash, erythema, pallor or cyanosis Psychiatric: Appropriate mood and affect for situation. Neurological: Alert and keenly responsive. CN II-XII grossly intact, moving all extremities equally and fully. MDM: - Vitals signs stable - History obtained via patient. History as above. - Chronic conditions affecting care: asthma; alcohol use disorder; bipolar disorder; headaches - Differential diagnoses include, but are not limited to: UTI; ureteral stone; pyelonephritis; appendicitis; cholecystitis - Order placed for continuous cardiac monitoring. At this time, monitor showed rate of 53 bpm with normal sinus rhythm, per my interpretation. - External medical records reviewed. Patient's urine culture from 09/18/2023 was reviewed. Patient grew Staphylococcus saprophyticus that was sensitive to Dapto, nitrofurantoin, tetracycline, Bactrim and Vanco. - Laboratory workup interpreted by myself showed normal WBC; stable electrolytes other than hypomagnesemia (Mg 1.6); normal lipase; normal procalcitonin; normal lactate; negative hCG - CT abdomen/pelvis wo contrast negative for acute pathology - UA positive for infection - UDS positive for THC. - Patient given 1g IV magnesium for electrolyte placement. - Patient has a Bactrim allergy. She is also having symptoms of upper tract infection, though her CT scan is negative for acute pyelonephritis at this time - Patient given IV daptomycin. - Discussion was had with upper caser about patient's case and need for admission - Hospitalist, Dr. Reyna, consulted for admission - [facility] ASSESSMENT AND PLAN: Diagnosis: complicated UTI Plan: admit Past Med/Surg History Problem List (Updated 09/22/23 @ 20:12 by Julia Bell MD) Complicated urinary tract infection (Acute) Hypokalemia (Acute) Hypomagnesemia (Acute) Tachycardia (Acute) Marijuana use (Acute) Acute tension-type headache (Acute) Acute torticollis (Acute) Tachycardia Malingering Bipolar disorder by history Stimulant use disorder Alcohol use disorder Hidradenitis Insomnia Injury of right hand Cough Acute sinusitis Person under investigation for COVID-19 (Acute) UTI (urinary tract infection) Right knee pain Acute abscess of face Acute insomnia Medial meniscus tear Epidermoid cyst Injury of right lower extremity (Acute) Fall Low back pain with sciatica (Chronic) Ruptured epithelial inclusion cyst Abscess, neck (Acute) Acute sinusitis (Acute) Feeling grief (Acute) Vitamin D deficiency (Acute) Depression (Acute) Anxiety (Acute) Allergic rhinitis (Acute) Extrinsic asthma, unspecified (Acute 04/02/12) Chronic low back pain (Acute) Chronic back pain (Chronic) Chronic interstitial cystitis (Acute) Migraine headache (Chronic) Medical History (Updated 09/22/23 @ 20:12 by Julia Bell MD) Breast cancer Anxiety SVT (supraventricular tachycardia) GERD (gastroesophageal reflux disease) Anemia HX Abscess or cellulitis of groin Endometriosis, pelvic peritoneum Furuncles Hidradenitis (04/02/12) Other and unspecified ovarian cyst (04/02/12) Sacroiliitis Cellulitis of right breast Surgical History H/O: hysterectomy H/O mastectomy History of dilatation and curettage Hx of mastectomy RIGHT-PRECANCEROUS CELLS-3-4 YRS AGO Hx of hysterectomy History of tubal ligation History of tonsillectomy History of tooth extraction Family History Grandmother Diabetes Hypertension Unknown Kidney disease Mother Migraine headache Diabetes Hypertension Father Diabetes Grandfather (Paternal) Prostate cancer Denies family history of Ovarian cancer Myocardial infarction Breast cancer Colorectal cancer Social History Smoking Status: Current every day smoker Tobacco Type: Cigarettes Cigarettes Per Day: 1 PPD X 15 YR AGO; Second Hand Exposure: No; Do You Dip or Chew Tobacco: No; Hx Alcohol Use: Yes Alcohol type: hard liquor Hx Substance Use: No Preferred Language: [place] Communication Ability: Effective Egg Separator Required: No Beliefs That Will Affect Care: None marital status: Single Current Living Situation: Family current occupational status: employed Feels Safe at Home: Yes caffeine: Yes Dental Care, Regularly: No Physical Activity Frequency: Does not Exercise Seatbelt Use: always Sunscreen Use: No Gender Identity: Female Assistive Devices: None Allergies Allergies Allergy/AdvReac Type Severity Reaction Status Date / Time nitrofurantoin Allergy Severe DIFFICULTY Verified 09/22/23 19:47 BREATHING sumatriptan Allergy Severe SOB,tachycardia,elevated Verified 09/22/23 19:47 blood pressure trazodone Allergy Mild ITCHING Verified 09/22/23 19:47 SENSATION metoprolol AdvReac Severe Anaphylaxis Verified 09/22/23 19:47 adhesive tape AdvReac Mild Skin Verified 09/22/23 19:47 irritation Sulfa (Sulfonamide AdvReac Mild NAUSEA Verified 09/22/23 19:47 Antibiotics) Home Meds Home Medications Medication Instructions Recorded Confirmed acetaminophen 650 mg 1,300 mg PO DIRECTED PRN Pain 07/19/23 09/22/23 tablet,extended release lorazepam 0.5 mg tablet 0.5 mg PO BID PRN Anxiety 07/19/23 09/22/23 magnesium oxide 500 mg capsule 500 mg PO DAILY 09/07/23 09/22/23 potassium 99 mg tablet 99 mg PO DAILY 09/07/23 09/22/23 risperidone 2 mg tablet 2 mg PO HS 09/14/23 09/22/23 Results & Data (ED) Vital Signs Vital Signs - 24 hr 09/22/23 18:18 09/22/23 19:01 09/22/23 19:49 Temperature 36.6 C Temperature Source Skin Pulse Rate 66 Pulse Rate [Right Finger] 52 L Respiratory Rate 19 19 Respiratory Effort / Characteristics Non-Labored Spontaneous Non-Labored Spontaneous Respiratory Depth Normal Normal Respiratory Pattern Regular Blood Pressure 107/70 Blood Pressure [Left Arm] 105/67 Blood Pressure Mean 82 Blood Pressure Mean [Left Arm] 79 Pulse Oximetry 96 98 97 Oxygen Delivery Method Room Air Room Air Room Air Sepsis Recent Fever Within 48 Hours No Sepsis New/Unexplained Change in Mental Status No Sepsis Action Taken by Nursing No Action Required Laboratory Data 09/22/23 18:23 09/22/23 18:23 Lab Results 09/22/23 09/22/23 09/22/23 Range/Units 18:20 18:23 18:32 WBC 7.88 (4.8-10.8) K/ul RBC 4.12 L (4.20-5.40) M/uL Hgb 11.5 L (12.0-16.0) g/dl Hct 36.5 L (37.0-47.0) % MCV 88.6 (80.0-100.0) fL MCH 27.9 (25.0-34.0) pg MCHC 31.5 L (32.0-36.0) g/dL RDW Std Deviation 42.4 (36.4-46.3) fL RDW Coeff of Dipika 13.1 (11.5-14.5) % Plt Count 210 (130-400) K/uL MPV 11.5 (9.4-12.4) fL Immature Gran % (Auto) 0.4 % Neut % (Auto) 59.6 % Lymph % (Auto) 31.6 % [place] % (Auto) 5.5 % Eos % (Auto) 2.5 % Baso % (Auto) 0.4 % Neut # (Auto) 4.70 (1.40-6.50) K/uL Lymph # (Auto) 2.49 (1.20-3.40) K/uL [place] # (Auto) 0.43 (0.11-0.59) K/uL Eos # (Auto) 0.20 (0.00-0.50) K/uL Baso # (Auto) 0.03 (0.00-0.20) K/uL Immature Gran # (Auto) 0.03 (0.01-0.20) K/uL PT 10.9 (9.0-12.0) Seconds INR 1.0 (0.9-1.1) Sodium 140 (136-145) mmol/L Potassium 3.6 D (3.5-5.1) mmol/L Chloride 110 H (98-107) mmol/L Carbon Dioxide 24 (21-32) mmol/L Anion Gap 6 (3-11) BUN 5 L (6-23) mg/dl Creatinine 0.73 (0.6-1.2) mg/dl Est Cr Clr Drug Dosing 102.6 ml/min Est GFR ( Amer) 125.4 ml/min Est GFR (Non-Af Amer) 108.2 ml/min BUN/Creatinine Ratio 6.8 L (10-20) Glucose 80 (70-99(Fasting)) mg/dl Lactate 0.9 (0.4-2.0) mmol/L Calcium 8.9 (8.6-10.3) mg/dl Magnesium 1.6 L (1.7-2.4) mg/dl Total Bilirubin 0.6 (0.2-1.0) mg/dl AST 16 (13-39) U/L ALT 21 (7-52) U/L Alkaline Phosphatase 60 (34-104) U/L Total Protein 6.5 (6.0-8.3) gm/dl Albumin 3.8 (3.4-5.0) gm/dl Globulin 2.7 (2.5-4.0) gm/dl Albumin/Globulin Ratio 1.4 (0.9-2) Lipase 22 (11-82) U/L Procalcitonin 0.03 (0-0.5) ng/ml HCG, Qual Negative (Negative) Urine Color Yellow Urine Appearance Clear (Clear) Urine pH 6.5 (4.5-7.5) Ur Specific [place] 1.009 (1.000-1.030) Urine Protein Negative (Negative) Urine Glucose (UA) Negative (Negative) Urine Ketones Negative (Negative) Urine Blood 1+ H (Negative) Urine Nitrite Negative (Negative) Urine Bilirubin Negative (Negative) Urine Urobilinogen Negative (Negative) Ur Leukocyte Esterase 1+ H (Negative) Urine WBC (Auto) 21-50 H (0-5) /hpf Urine RBC (Auto) 0-2 (0-2) /hpf U Hyaline Cast (Auto) 0-2 (0-2) /lpf U Epithel Cells (Auto) 3-5 H (0-2) /hpf Urine Bacteria (Auto) 2+ H (None Seen) Urine Opiates Screen (Neg) Ur Methadone, Qual (Neg) Urine Fentanyl Screen (Neg) Urine Barbiturates (Neg) Ur Phencyclidine (PCP) (Neg) U Amphetamin/Meth Scrn (Neg) MDMA (Ecstasy) Screen (Neg) U Benzodiazepines Scrn (Neg) Ur Cocaine Metabolite (Neg) U Marijuana (THC) Screen (Neg) 09/22/23 Range/Units 18:59 WBC (4.8-10.8) K/ul RBC (4.20-5.40) M/uL Hgb (12.0-16.0) g/dl Hct (37.0-47.0) % MCV (80.0-100.0) fL MCH (25.0-34.0) pg MCHC (32.0-36.0) g/dL RDW Std Deviation (36.4-46.3) fL RDW Coeff of Dipika (11.5-14.5) % Plt Count (130-400) K/uL MPV (9.4-12.4) fL Immature Gran % (Auto) % Neut % (Auto) % Lymph % (Auto) % [place] % (Auto) % Eos % (Auto) % Baso % (Auto) % Neut # (Auto) (1.40-6.50) K/uL Lymph # (Auto) (1.20-3.40) K/uL [place] # (Auto) (0.11-0.59) K/uL Eos # (Auto) (0.00-0.50) K/uL Baso # (Auto) (0.00-0.20) K/uL Immature Gran # (Auto) (0.01-0.20) K/uL PT (9.0-12.0) Seconds INR (0.9-1.1) Sodium (136-145) mmol/L Potassium (3.5-5.1) mmol/L Chloride (98-107) mmol/L Carbon Dioxide (21-32) mmol/L Anion Gap (3-11) BUN (6-23) mg/dl Creatinine (0.6-1.2) mg/dl Est Cr Clr Drug Dosing ml/min Est GFR ( Amer) ml/min Est GFR (Non-Af Amer) ml/min BUN/Creatinine Ratio (10-20) Glucose (70-99(Fasting)) mg/dl Lactate (0.4-2.0) mmol/L Calcium (8.6-10.3) mg/dl Magnesium (1.7-2.4) mg/dl Total Bilirubin (0.2-1.0) mg/dl AST (13-39) U/L ALT (7-52) U/L Alkaline Phosphatase (34-104) U/L Total Protein (6.0-8.3) gm/dl Albumin (3.4-5.0) gm/dl Globulin (2.5-4.0) gm/dl Albumin/Globulin Ratio (0.9-2) Lipase (11-82) U/L Procalcitonin (0-0.5) ng/ml HCG, Qual (Negative) Urine Color Urine Appearance (Clear) Urine pH (4.5-7.5) Ur Specific [place] (1.000-1.030) Urine Protein (Negative) Urine Glucose (UA) (Negative) Urine Ketones (Negative) Urine Blood (Negative) Urine Nitrite (Negative) Urine Bilirubin (Negative) Urine Urobilinogen (Negative) Ur Leukocyte Esterase (Negative) Urine WBC (Auto) (0-5) /hpf Urine RBC (Auto) (0-2) /hpf U Hyaline Cast (Auto) (0-2) /lpf U Epithel Cells (Auto) (0-2) /hpf Urine Bacteria (Auto) (None Seen) Urine Opiates Screen Neg (Neg) Ur Methadone, Qual Neg (Neg) Urine Fentanyl Screen Neg (Neg) Urine Barbiturates Neg (Neg) Ur Phencyclidine (PCP) Neg (Neg) U Amphetamin/Meth Scrn Neg (Neg) MDMA (Ecstasy) Screen Neg (Neg) U Benzodiazepines Scrn Neg (Neg) Ur Cocaine Metabolite Neg (Neg) U Marijuana (THC) Screen Pos H (Neg) Administered Medications Daptomycin 250 mg/ Syringe 5 mls @ 2.5 mls/min IV Q24H ELIO; Protocol Stop: 10/02/23 19:14 Last Admin: 09/22/23 19:43 Dose: 2.5 mls/min Documented By: MARCO ANTONIO Discontinued Medications Sodium Chloride (Nss) 1,000 mls @ 999 mls/hr IV .Q1H1M ONE Stop: 09/22/23 19:32 Last Admin: 09/22/23 19:02 Dose: 999 mls/hr Documented By: MARCO ANTONIO Acetaminophen (Ofirmev) 1,000 mg in 100 mls @ 400 mls/hr IV NOW STA Stop: 09/22/23 18:46 Last Infusion: 09/22/23 19:43 Dose: Infused Documented By: MARCO ANTONIO Admin: 09/22/23 18:59 Dose: 400 mls/hr Documented By: MARCO ANTONIO Magnesium Sulfate/Dextrose (Magnesium Sulfate / D5w) 1 gm in 100 mls @ 100 mls/hr IV NOW STA Stop: 09/22/23 20:28 Last Admin: 09/22/23 19:45 Dose: 100 mls/hr Documented By: MARCO ANTONIO Imaging Data Radiologist's Impression: Abdomen/Pelvis CT 09/22/23 18:32 CT abd pelvis wo con CLINICAL HISTORY: R flank pain; complicated UTI TECHNIQUE: Helical axial images of the abdomen and pelvis were obtained. Automated dose lowering techniques and/or adjustment according to patient size were utilized for this exam. This exam was performed without intravenous contrast. CT DOSE: 738.88 mGy.cm COMPARISON: Comparison is made to CT abdomen pelvis 06/09/2022 FINDINGS: Lower chest: Bibasilar atelectasis versus scarring is seen. Liver: Unremarkable. No focal lesions are seen. Gallbladder and biliary tree: No calcified gallstones. Normal caliber wall. No intra- or extrahepatic biliary ductal dilation. Pancreas: Unremarkable, no focal lesions. Spleen: Unremarkable. Adrenals: Unremarkable. Kidneys and ureters: There is mild prominence of the left ureter without hydronephrosis or obstructive stone. The right kidney and ureter are unremarkable. Bladder: Unremarkable. Reproductive organs: Unremarkable. Bowel: The appendix is normal. Lymph nodes Retroperitoneal: Unremarkable. Pelvic: Unremarkable. Mesenteric: Unremarkable. Peritoneum: Normal. Vessels: Unremarkable. Abdominal wall: Unremarkable. Bones: Unremarkable. IMPRESSION: No acute abnormalities and in particular no evidence of obstructive stone in this patient with right flank pain. The appendix is normal. Mild prominence of the left ureter is nonspecific. Clinical correlation is recommended to exclude ascending infection. ACT 112: Negative or not required by law. Electronically signed by: Manuel Dunbar M.D. 09/22/2023 7:50 PM Discharge Plan Visit Data Chief Complaint: Infection Stated Complaint: INFECTION, DOC REF ED Provider: Julia Bell Discharge Problem: Complicated urinary tract infection Forms Stand Alone Forms: [facility] Prescriptions Prescriptions: No Action magnesium oxide 500 mg capsule 500 mg PO DAILY potassium 99 mg tablet 99 mg PO DAILY acetaminophen [Tylenol Arthritis] 650 mg Tablet Extended Release 1,300 mg PO DIRECTED PRN (Reason: Pain) lorazepam 0.5 mg tablet 0.5 mg PO BID PRN (Reason: Anxiety) risperidone 2 mg tablet 2 mg PO HS Referrals Referrals: Beverly Hall MD [Primary Care Provider] -
[2023-09-22 18:51] LABS: Appearance Urine Clear (Clear); Bacteria Urine Automated 2+ (None Seen); Bilirubin Urine Negative (Negative); Blood Urine 1+ (Negative); Cast Urine Automated 0-2 /lpf (0-2); Color Urine Yellow; Glucose Urine UA Negative (Negative); Ketones Urine Negative (Negative); Leukocyte Esterase Urine 1+ (Negative); Nitrite Urine Negative (Negative); Protein Urine Negative (Negative); RBC Urine Automated 0-2 /hpf (0-2); Specific Gravity Urine 1.009 (1.000-1.030); Urobilinogen Urine Negative (Negative); WBC Urine Automated 21-50 /hpf (0-5); pH Urine 6.5 (4.5-7.5)
[2023-09-22] MEDS: ACETAMINOPHEN 1,000 MG/100 ML VIAL IV STA (18:59)
[2023-09-22] MEDS: SODIUM CHLORIDE 0.9% 1,000 ML IV ONE (19:02)
[2023-09-22 19:08] LABS: Basophils # (auto) 0.03 K/uL (0.00-0.20); Basophils % (auto) 0.4 %; Eosinophils % (auto) 2.5 %; Hematocrit (blood only) 36.5 % (37.0-47.0); Hemoglobin 11.5 g/dl (12.0-16.0); Immature Granulocytes # (auto) 0.03 K/uL (0.01-0.20); Immature Granulocytes % (auto) 0.4 %; Lymphocytes # (auto) 2.49 K/uL (1.20-3.40); Lymphocytes % (auto) 31.6 %; Mean Corpuscular Hemoglobin 27.9 pg (25.0-34.0); Mean Corpuscular Hgb Conc 31.5 g/dL (32.0-36.0); Mean Corpuscular Volume 88.6 fL (80.0-100.0); Mean Platelet Volume 11.5 fL (9.4-12.4); Monocytes # (auto) 0.43 K/uL (0.11-0.59); Monocytes % (auto) 5.5 %; Neutrophils % (auto) 59.6 %; Platelet Count 210 K/uL (130-400); RDW Coefficient of Variation 13.1 % (11.5-14.5); RDW Standard Deviation 42.4 fL (36.4-46.3); Red Blood Count 4.12 M/uL (4.20-5.40); White Blood Count 7.88 K/ul (4.8-10.8)
[2023-09-22 19:28] LABS: Albumin Globulin Ratio 1.4 (0.9-2); Albumin Level 3.8 gm/dl (3.4-5.0); BUN Creatinine Ratio 6.8 (10-20); Bilirubin,Total 0.6 mg/dl (0.2-1.0); Calcium 8.9 mg/dl (8.6-10.3); Creatinine Clr Calc Pharmacy 102.6 ml/min; Est GFR (African American) 125.4 ml/min; Est GFR (Non-African American) 108.2 ml/min; Globulin 2.7 gm/dl (2.5-4.0); Magnesium 1.6 mg/dl (1.7-2.4); Potassium 3.6 mmol/L (3.5-5.1); Total Protein 6.5 gm/dl (6.0-8.3)
[2023-09-22 19:29] LABS: Amphetamines+Metham, Urine Neg (Neg); Barbiturates, Urine Neg (Neg); Benzodiazepine, Urine Neg (Neg); Cocaine, Urine Neg (Neg); Fentanyl, Urine Neg (Neg); MDMA (Ecstacy), Urine Neg (Neg); Marijuana, Urine Pos (Neg); Methadone, Urine Neg (Neg); Opiate, Urine Neg (Neg); Phencyclidine, Urine Neg (Neg)
[2023-09-22 19:31] LABS: Pregnancy Test, Serum Negative (Negative)
[2023-09-22 19:33] LABS: Prothrombin Time 10.9 Seconds (9.0-12.0)
[2023-09-22] MEDS: DAPTOmycin 250 MG in SYRINGE 0 ML IV SCH (19:43)
[2023-09-22] MEDS: MAGNESIUM SULFATE / D5W 1 GM/100 ML BAG IV STA (19:45)
--- NOTE | 2023-09-22 19:52 | CT Scan Report ---
CT abd pelvis wo con CLINICAL HISTORY: R flank pain; complicated UTI TECHNIQUE: Helical axial images of the abdomen and pelvis were obtained. Automated dose lowering tech niques and/or adjustment according to patient size were utilized for this exam. This exam was perfor med without intravenous contrast. CT DOSE: 738.88 mGy.cm COMPARISON: Comparison is made to CT abdomen pelvis 06/09/2022 FINDINGS: Lower chest: Bibasilar atelectasis versus scarring is seen. Liver: Unremarkable. No focal lesions are seen. Gallbladder and biliary tree: No calcified gallstones. Normal caliber wall. No intra- or extrahepatic biliary ductal dilation. Pancreas: Unremarkable, no focal lesions. Spleen: Unremarkable. Adrenals: Unremarkable. Kidneys and ureters: There is mild prominence of the left ureter without hydronephrosis or obstructiv e stone. The right kidney and ureter are unremarkable. Bladder: Unremarkable. Reproductive organs: Unremarkable. Bowel: The appendix is normal. Lymph nodes Retroperitoneal: Unremarkable. Pelvic: Unremarkable. Mesenteric: Unremarkable. Peritoneum: Normal. Vessels: Unremarkable. Abdominal wall: Unremarkable. Bones: Unremarkable. IMPRESSION: No acute abnormalities and in particular no evidence of obstructive stone in this patient with right flank pain. The appendix is normal. Mild prominence of the left ureter is nonspecific. Clinical corre lation is recommended to exclude ascending infection. ACT 112: Negative or not required by law. Electronically signed by: Manuel Dunbar M.D. 09/22/2023 7:50 PM
--- NOTE | 2023-09-22 21:22 | History & Physical Report ---
Date of Service September 22, 2023 Assessment & Plan (1) Complicated urinary tract infection: Plan: 33-year-old female with past med history significant for hypokalemia, allergic rhinitis, SVT, history of nausea/ vomiting, GERD, vitamin D deficiency, chronic interstitial cystitis, chronic pain of the right knee, migraine, bipolar 1 disorder, tobacco abuse, medical marijuana use, anxiety comes because of right flank pain and nausea and vomiting and found to have UTI. Patient states last 3 to 4 days she is having nausea vomiting and right flank pain. Right flank pain is severe about 8 -9/10 in severity. She was in the ER few days back but went home without seen by ED physician but at that time urine was collected. Urine culture came back positive for Staphylococcus saprophyticus which was oxacillin resistant. But patient has allergies to nitrofurantoin and Bactrim and also she is having nausea so getting admitted for IV antibiotics. Denies any fever or chills. She has chronic headaches. Chronic cough with phlegm. Some runny nose. When she gets up she gets dizziness and blurred visions. Not eating much. She has some chest tightness. Shortness of breath if she walks long distances. Right flank pain extending to the right side of the abdomen. Today she had some diarrhea. Denies blood in stool or black stools. She has increased urination. She has some burning micturition. She states she always has some hematuria in the urine and she follows with a urologist. Currently hemodynamic stable. complicated urine tract infection has right flank pain. But CT abdomen pelvis is okay. Urine cultures growing Staphylococcus saprophyticus which is resistant to oxacillin patient allergy to nitrofurantoin and Bactrim. Also has nausea. ER started on IV Dapto which will be continued. IV fluids. Monitor in the hospital. History of SVT. Patient states she is currently not taking metoprolol Patient states she has upcoming appointment with cardiology. Bipolar disorder. Anxiety. On risperidone. On Ativan as needed. Hypomagnesia will replace follow labs tobacco abuse needs counseling. DVT prophylaxis. Lovenox disposition medical floor Full code History of Present Illness Chief Complaint: Acute UTI Primary Care Provider: Beverly Hall MD 33-year-old female with past med history significant for hypokalemia, allergic rhinitis, SVT, history of nausea/ vomiting, GERD, vitamin D deficiency, chronic interstitial cystitis, chronic pain of the right knee, migraine, bipolar 1 disorder, tobacco abuse, medical marijuana use, anxiety comes because of right flank pain and nausea and vomiting and found to have UTI. Patient states last 3 to 4 days she is having nausea vomiting and right flank pain. Right flank pain is severe about 8 -9/10 in severity. She was in the ER few days back but went home without seen by ED physician but at that time urine was collected. Urine culture came back positive for Staphylococcus saprophyticus which was oxacillin resistant. But patient has allergies to nitrofurantoin and Bactrim and also she is having nausea so getting admitted for IV antibiotics. Denies any fever or chills. She has chronic headaches. Chronic cough with phlegm. Some runny nose. When she gets up she gets dizziness and blurred visions. Not eating much. She has some chest tightness. Shortness of breath if she walks long distances. Right flank pain extending to the right side of the abdomen. Today she had some diarrhea. Denies blood in stool or black stools. She has increased urination. She has some burning micturition. She states she always has some hematuria in the urine and she follows with a urologist. Currently hemodynamic stable. Past medical history. As mentioned above Past surgical history. Breast lesion excision. Bilateral knee arthroscopy. Laparoscopic total hysterectomy with removal of tubes. Ligation of oviducts. Cyst removal from right upper leg. Social history. . Smokes 1 pack a day for last 38 years. No alcohol use. Smokes marijuana daily. Family history. Father has alcoholism. Diabetes type 1. Mother has bipolar disorder. Depression. Hypertension. Kidney stones. Daughter has ADHD. Maternal grandfather had diabetes. Hypertension. Maternal grandmother had diabetes. Paternal grandmother had hypertension. Diabetes. Paternal grandfather had diabetes. Allergies Allergy/AdvReac Type Severity Reaction Status Date / Time nitrofurantoin Allergy Severe DIFFICULTY Verified 09/22/23 19:47 BREATHING sumatriptan Allergy Severe SOB,tachycardia,elevated Verified 09/22/23 19:47 blood pressure trazodone Allergy Mild ITCHING Verified 09/22/23 19:47 SENSATION metoprolol AdvReac Severe Anaphylaxis Verified 09/22/23 19:47 adhesive tape AdvReac Mild Skin Verified 09/22/23 19:47 irritation Sulfa (Sulfonamide AdvReac Mild NAUSEA Verified 09/22/23 19:47 Antibiotics) Home Medications Medication Instructions Recorded Confirmed Type acetaminophen 650 mg 1,300 mg PO DIRECTED PRN Pain 07/19/23 09/22/23 History tablet,extended release lorazepam 0.5 mg tablet 0.5 mg PO BID PRN Anxiety 07/19/23 09/22/23 History magnesium oxide 500 mg capsule 500 mg PO DAILY 09/07/23 09/22/23 History potassium 99 mg tablet 99 mg PO DAILY 09/07/23 09/22/23 History risperidone 2 mg tablet 2 mg PO HS 09/14/23 09/22/23 History Past Med/Surg History Problem List (Updated 09/22/23 @ 20:12 by Julia Bell MD) Complicated urinary tract infection (Acute) Hypokalemia (Acute) Hypomagnesemia (Acute) Tachycardia (Acute) Marijuana use (Acute) Acute tension-type headache (Acute) Acute torticollis (Acute) Tachycardia Malingering Bipolar disorder by history Stimulant use disorder Alcohol use disorder Hidradenitis Insomnia Injury of right hand Cough Acute sinusitis Person under investigation for COVID-19 (Acute) UTI (urinary tract infection) Right knee pain Acute abscess of face Acute insomnia Medial meniscus tear Epidermoid cyst Injury of right lower extremity (Acute) Fall Low back pain with sciatica (Chronic) Ruptured epithelial inclusion cyst Abscess, neck (Acute) Acute sinusitis (Acute) Feeling grief (Acute) Vitamin D deficiency (Acute) Depression (Acute) Anxiety (Acute) Allergic rhinitis (Acute) Extrinsic asthma, unspecified (Acute 04/02/12) Chronic low back pain (Acute) Chronic back pain (Chronic) Chronic interstitial cystitis (Acute) Migraine headache (Chronic) Medical History (Updated 09/22/23 @ 20:12 by Julia Bell MD) Breast cancer Anxiety SVT (supraventricular tachycardia) GERD (gastroesophageal reflux disease) Anemia HX Abscess or cellulitis of groin Endometriosis, pelvic peritoneum Furuncles Hidradenitis (04/02/12) Other and unspecified ovarian cyst (04/02/12) Sacroiliitis Cellulitis of right breast Surgical History H/O: hysterectomy H/O mastectomy History of dilatation and curettage Hx of mastectomy RIGHT-PRECANCEROUS CELLS-3-4 YRS AGO Hx of hysterectomy History of tubal ligation History of tonsillectomy History of tooth extraction Family History Grandmother Diabetes Hypertension Unknown Kidney disease Mother Migraine headache Diabetes Hypertension Father Diabetes Grandfather (Paternal) Prostate cancer Denies family history of Ovarian cancer Myocardial infarction Breast cancer Colorectal cancer Social History Smoking Status: Current every day smoker Tobacco Type: Cigarettes Cigarettes Per Day: 1 pack; Second Hand Exposure: No; Do You Dip or Chew Tobacco: No; Tobacco Cessation Education Requested by Patient: No Hx Alcohol Use: No Hx Substance Use: Yes Last Used Substance: Days (ago) Last Used Substance Other:: 1 day prior to arrival Preferred Language: Maltese Communication Ability: Effective Poll Clerk Required: No Beliefs That Will Affect Care: None marital status: Single Current Living Situation: Spouse current occupational status: employed Other Information That Helps Us Care for You: No Feels Safe at Home: Yes Safety Concerns: Feels Safe At This Time caffeine: Yes Dental Care, Regularly: No Physical Activity Frequency: Does not Exercise Seatbelt Use: always Sunscreen Use: No Gender Identity: Female Assistive Devices: None Review of Systems Review of Systems: All systems reviewed & are unremarkable except as noted in HPI & below Physical Exam Physical Exam: General- Not in distress. Head- atraumatic Eyes- PERRL. ENT- oropharynx clear Neck- supple, no JVD. Lungs- clear to auscultation no wheezing or crackles. Heart- regular rate and rhythm; no murmur, no gallop. Abdomen- normal bowel sounds, soft, right cva tenderness present.No distension Extremities- no pretibial edema, no erythema seen. Neuro- alert, oriented PERRL, EOMI; no facial palsy; no dysarthria; moves extremities. Results & Data Results & Data Vital Signs (Past 12 Hours) Vital Signs Temp Pulse Pulse Resp BP BP Pulse Ox 09/22/23 19:49 52 L 19 105/67 97 09/22/23 19:01 98 09/22/23 18:18 36.6 C 66 19 107/70 96 O2 Del Method 09/22/23 19:49 Room Air 09/22/23 19:01 Room Air 09/22/23 18:18 Room Air Diagnostic Findings Laboratory Results WBC 7.88 K/ul (4.8-10.8) 09/22/23 18:23 RBC 4.12 M/uL (4.20-5.40) L 09/22/23 18:23 Hgb 11.5 g/dl (12.0-16.0) L 09/22/23 18:23 Hct 36.5 % (37.0-47.0) L 09/22/23 18:23 MCV 88.6 fL (80.0-100.0) 09/22/23 18:23 MCH 27.9 pg (25.0-34.0) 09/22/23 18:23 MCHC 31.5 g/dL (32.0-36.0) L 09/22/23 18:23 RDW Std Deviation 42.4 fL (36.4-46.3) 09/22/23 18:23 RDW Coeff of Dipika 13.1 % (11.5-14.5) 09/22/23 18:23 Plt Count 210 K/uL (130-400) 09/22/23 18:23 MPV 11.5 fL (9.4-12.4) 09/22/23 18:23 Immature Gran % (Auto) 0.4 % 09/22/23 18:23 Neut % (Auto) 59.6 % 09/22/23 18:23 Lymph % (Auto) 31.6 % 09/22/23 18:23 [place] % (Auto) 5.5 % 09/22/23 18:23 Eos % (Auto) 2.5 % 09/22/23 18:23 Baso % (Auto) 0.4 % 09/22/23 18:23 Neut # (Auto) 4.70 K/uL (1.40-6.50) 09/22/23 18:23 Lymph # (Auto) 2.49 K/uL (1.20-3.40) 09/22/23 18:23 [place] # (Auto) 0.43 K/uL (0.11-0.59) 09/22/23 18:23 Eos # (Auto) 0.20 K/uL (0.00-0.50) 09/22/23 18:23 Baso # (Auto) 0.03 K/uL (0.00-0.20) 09/22/23 18:23 Immature Gran # (Auto) 0.03 K/uL (0.01-0.20) 09/22/23 18:23 PT 10.9 Seconds (9.0-12.0) 09/22/23 18:23 INR 1.0 (0.9-1.1) 09/22/23 18:23 Sodium 140 mmol/L (136-145) 09/22/23 18:23 Potassium 3.6 mmol/L (3.5-5.1) D 09/22/23 18:23 Chloride 110 mmol/L (98-107) H 09/22/23 18:23 Carbon Dioxide 24 mmol/L (21-32) 09/22/23 18:23 Anion Gap 6 (3-11) 09/22/23 18:23 BUN 5 mg/dl (6-23) L 09/22/23 18:23 Creatinine 0.73 mg/dl (0.6-1.2) 09/22/23 18:23 Est Cr Clr Drug Dosing 102.6 ml/min 09/22/23 18:23 Est GFR ( Amer) 125.4 ml/min 09/22/23 18:23 Est GFR (Non-Af Amer) 108.2 ml/min 09/22/23 18:23 BUN/Creatinine Ratio 6.8 (10-20) L 09/22/23 18:23 Glucose 80 mg/dl (70-99(Fasting)) 09/22/23 18:23 Lactate 0.9 mmol/L (0.4-2.0) 09/22/23 18:32 Calcium 8.9 mg/dl (8.6-10.3) 09/22/23 18:23 Magnesium 1.6 mg/dl (1.7-2.4) L 09/22/23 18:23 Total Bilirubin 0.6 mg/dl (0.2-1.0) 09/22/23 18:23 AST 16 U/L (13-39) 09/22/23 18:23 ALT 21 U/L (7-52) 09/22/23 18:23 Alkaline Phosphatase 60 U/L (34-104) 09/22/23 18:23 Total Protein 6.5 gm/dl (6.0-8.3) 09/22/23 18:23 Albumin 3.8 gm/dl (3.4-5.0) 09/22/23 18:23 Globulin 2.7 gm/dl (2.5-4.0) 09/22/23 18:23 Albumin/Globulin Ratio 1.4 (0.9-2) 09/22/23 18:23 Lipase 22 U/L (11-82) 09/22/23 18:23 Procalcitonin 0.03 ng/ml (0-0.5) 09/22/23 18:23 HCG, Qual Negative (Negative) 09/22/23 18:23 Urine Color Yellow 09/22/23 18:20 Urine Appearance Clear (Clear) 09/22/23 18:20 Urine pH 6.5 (4.5-7.5) 09/22/23 18:20 Ur Specific [place] 1.009 (1.000-1.030) 09/22/23 18:20 Urine Protein Negative (Negative) 09/22/23 18:20 Urine Glucose (UA) Negative (Negative) 09/22/23 18:20 Urine Ketones Negative (Negative) 09/22/23 18:20 Urine Blood 1+ (Negative) H 09/22/23 18:20 Urine Nitrite Negative (Negative) 09/22/23 18:20 Urine Bilirubin Negative (Negative) 09/22/23 18:20 Urine Urobilinogen Negative (Negative) 09/22/23 18:20 Ur Leukocyte Esterase 1+ (Negative) H 09/22/23 18:20 Urine WBC (Auto) 21-50 /hpf (0-5) H 09/22/23 18:20 Urine RBC (Auto) 0-2 /hpf (0-2) 09/22/23 18:20 U Hyaline Cast (Auto) 0-2 /lpf (0-2) 09/22/23 18:20 U Epithel Cells (Auto) 3-5 /hpf (0-2) H 09/22/23 18:20 Urine Bacteria (Auto) 2+ (None Seen) H 09/22/23 18:20 Urine Opiates Screen Neg (Neg) 09/22/23 18:59 Ur Methadone, Qual Neg (Neg) 09/22/23 18:59 Urine Fentanyl Screen Neg (Neg) 09/22/23 18:59 Urine Barbiturates Neg (Neg) 09/22/23 18:59 Ur Phencyclidine (PCP) Neg (Neg) 09/22/23 18:59 U Amphetamin/Meth Scrn Neg (Neg) 09/22/23 18:59 MDMA (Ecstasy) Screen Neg (Neg) 09/22/23 18:59 U Benzodiazepines Scrn Neg (Neg) 09/22/23 18:59 Ur Cocaine Metabolite Neg (Neg) 09/22/23 18:59 U Marijuana (THC) Screen Pos (Neg) H 09/22/23 18:59 Impressions Abdomen/Pelvis CT 09/22/23 18:32 CT abd pelvis wo con CLINICAL HISTORY: R flank pain; complicated UTI TECHNIQUE: Helical axial images of the abdomen and pelvis were obtained. Automat ed dose lowering techniques and/or adjustment according to patient size were utilized for this exam. This exam was performed without intravenous contrast. CT DOSE: 738.88 mGy.cm COMPARISON: Comparison is made to CT abdomen pelvis 06/09/2022 FINDINGS: Lower chest: Bibasilar atelectasis versus scarring is seen. Liver: Unremarkable. No focal lesions are seen. Gallbladder and biliary tree: No calcified gallstones. Normal caliber wall. No intra- or extrahepatic biliary ductal dilation. Pancreas: Unremarkable, no focal lesions. Spleen: Unremarkable. Adrenals: Unremarkable. Kidneys and ureters: There is mild prominence of the left ureter without hydronephrosis or obstructive stone. The right kidney and ureter are unremarkable. Bladder: Unremarkable. Reproductive organs: Unremarkable. Bowel: The appendix is normal. Lymph nodes Retroperitoneal: Unremarkable. Pelvic: Unremarkable. Mesenteric: Unremarkable. Peritoneum: Normal. Vessels: Unremarkable. Abdominal wall: Unremarkable. Bones: Unremarkable. IMPRESSION: No acute abnormalities and in particular no evidence of obstructive stone in this patient with right flank pain. The appendix is normal. Mild prominence of the left ureter is nonspecific. Clinical correlation is recommended to exclude ascending infection. ACT 112: Negative or not required by law. Electronically signed by: Manuel Dunbar M.D. 09/22/2023 7:50 PM Code Status & VTE Plan VTE Prophylaxis Plan VTE Prophylaxis will be ordered: Yes
[2023-09-22] MEDS: fentaNYL citrate PF 100 MCG/2 ML VIAL IV STA (21:30)
[2023-09-22] MEDS ORDERED: ACETAMINOPHEN 325 MG TAB PO PRN (22:07)
[2023-09-22] MEDS ORDERED: ONDANSETRON INJ 2 MG/ML 2 ML VIAL IV PRN (22:07)
[2023-09-22] MEDS ORDERED: HYDROmorphone INJ 0.5 MG/0.5 ML SYR IV PRN (22:42)
[2023-09-22] MEDS: LORazepam 0.5 MG TAB PO PRN (22:58)
[2023-09-22] MEDS: risperiDONE 2 MG TABLET PO SCH (22:58)
[2023-09-22] MEDS: ENOXAPARIN INJ 40 MG/0.4 ML SYR SQ SCH (22:58)
[2023-09-22] MEDS: MAGNESIUM SULFATE / D5W 1 GM/100 ML BAG IV ONE (23:10)
[2023-09-22] MEDS: SODIUM CHLORIDE 0.9% 1,000 ML IV SCH (23:11)
[2023-09-22] MEDS: NICOTINE 21 MG/24 HR TDSY TD SCH (23:11)
[2023-09-23 06:12] LABS: Basophils # (auto) 0.02 K/uL (0.00-0.20); Basophils % (auto) 0.3 %; Eosinophils # (auto) 0.14 K/uL (0.00-0.50); Eosinophils % (auto) 2.3 %; Hematocrit (blood only) 34.1 % (37.0-47.0); Hemoglobin 10.7 g/dl (12.0-16.0); Immature Granulocytes # (auto) 0.02 K/uL (0.01-0.20); Immature Granulocytes % (auto) 0.3 %; Lymphocytes # (auto) 2.19 K/uL (1.20-3.40); Lymphocytes % (auto) 36.3 %; Mean Corpuscular Hgb Conc 31.4 g/dL (32.0-36.0); Mean Corpuscular Volume 89.3 fL (80.0-100.0); Monocytes # (auto) 0.49 K/uL (0.11-0.59); Monocytes % (auto) 8.1 %; Neutrophils # (auto) 3.17 K/uL (1.40-6.50); Neutrophils % (auto) 52.7 %; Platelet Count 180 K/uL (130-400); RDW Coefficient of Variation 13.2 % (11.5-14.5); RDW Standard Deviation 42.9 fL (36.4-46.3); Red Blood Count 3.82 M/uL (4.20-5.40); White Blood Count 6.03 K/ul (4.8-10.8)
[2023-09-23 06:16] LABS: BUN Creatinine Ratio 9.1 (10-20); Calcium 7.8 mg/dl (8.6-10.3); Creatinine Clr Calc Pharmacy 123.1 ml/min; Est GFR (African American) 134.5 ml/min; Est GFR (Non-African American) 116.1 ml/min; Magnesium 1.9 mg/dl (1.7-2.4); Potassium 3.7 mmol/L (3.5-5.1)
[2023-09-23] MEDS: MAGNESIUM OXIDE 400 MG TAB PO SCH (09:00)
[2023-09-23] MEDS: DOXYCYCLINE HYCLATE 100 MG CAP PO SCH (09:27)
--- NOTE | 2023-09-23 12:32 | Discharge Summary ---
Discharge Summary Date of Service September 23, 2023 Principal Dx & Hospital Course #1 = Principal Diagnosis (1) Complicated urinary tract infection: Ms. Laura is a 33-year-old female with past med history significant for hypokalemia, allergic rhinitis, SVT, history of nausea/ vomiting, GERD, vitamin D deficiency, chronic interstitial cystitis, chronic pain of the right knee, migraine, bipolar 1 disorder, tobacco abuse, medical marijuana use, anxiety comes because of right flank pain and nausea and vomiting and found to have UTI. Patient states last 3 to 4 days she is having nausea vomiting and right flank pain. Right flank pain is severe about 8 -9/10 in severity. Patient with staph saprophyticus. Susceptible to tetracycines. Discussed with ID, Dr. Bain, over [employer]. Doxycycline and linezolid both acceptable. Patient reports being on doxycycline previously without any side effects. on day of discharge, patient reports resolution of dysuria and flank pain. #Acute complicated cystitis Urine cultures growing Staphylococcus saprophyticus which is resistant to oxacillin patient allergy to nitrofurantoin and Bactrim. symptoms resolved Discharge with doxycycline 100mg bid #History of SVT. Patient states she is currently not taking metoprolol Patient states she has upcoming appointment with cardiology. #Bipolar disorder. Anxiety. On risperidone. On Ativan as needed. # Hypomagnesia will replace follow labs # tobacco abuse declined counseling. Notes For Next Care Provider Patient with staph saprophyticus: Discussed with ID given macrobid/bactrim intolerance -Doxy v linezolid both acceptable Medication Changes From Visit Doxycyline 100mg BID Admission HPI Per Admitting Provider 33-year-old female with past med history significant for hypokalemia, allergic rhinitis, SVT, history of nausea/ vomiting, GERD, vitamin D deficiency, chronic interstitial cystitis, chronic pain of the right knee, migraine, bipolar 1 disorder, tobacco abuse, medical marijuana use, anxiety comes because of right flank pain and nausea and vomiting and found to have UTI. Patient states last 3 to 4 days she is having nausea vomiting and right flank pain. Right flank pain is severe about 8 -9/10 in severity. She was in the ER few days back but went home without seen by ED physician but at that time urine was collected. Urine culture came back positive for Staphylococcus saprophyticus which was oxacillin resistant. But patient has allergies to nitrofurantoin and Bactrim and also she is having nausea so getting admitted for IV antibiotics. Denies any fever or chills. She has chronic headaches. Chronic cough with phlegm. Some runny nose. When she gets up she gets dizziness and blurred visions. Not eating much. She has some chest tightness. Shortness of breath if she walks long distances. Right flank pain extending to the right side of the abdomen. Today she had some diarrhea. Denies blood in stool or black stools. She has increased urination. She has some burning micturition. She states she always has some hematuria in the urine and she follows with a urologist. Currently hemodynamic stable. Past medical history. As mentioned above Past surgical history. Breast lesion excision. Bilateral knee arthroscopy. Laparoscopic total hysterectomy with removal of tubes. Ligation of oviducts. Cyst removal from right upper leg. Social history. . Smokes 1 pack a day for last 38 years. No alcohol use. Smokes marijuana daily. Family history. Father has alcoholism. Diabetes type 1. Mother has bipolar disorder. Depression. Hypertension. Kidney stones. Daughter has ADHD. Maternal grandfather had diabetes. Hypertension. Maternal grandmother had diabetes. Paternal grandmother had hypertension. Diabetes. Paternal grandfather had diabetes. Admission Exam Per Admitting Provider General- Not in distress. Head- atraumatic Eyes- PERRL. ENT- oropharynx clear Neck- supple, no JVD. Lungs- clear to auscultation no wheezing or crackles. Heart- regular rate and rhythm; no murmur, no gallop. Abdomen- normal bowel sounds, soft, right cva tenderness present.No distension Extremities- no pretibial edema, no erythema seen. Neuro- alert, oriented PERRL, EOMI; no facial palsy; no dysarthria; moves extremities. Discharge Exam Constitutional WD/WN, vitals as above Respiratory normal respiratory effort, lungs clear to auscultation Cardiovascular RRR, no murmur, no edema Gastrointestinal (Abdomen) normal bowel sounds, soft, nontender, no hepatosplenomegaly Updated Medication List Medication Instructions Recorded Confirmed Type acetaminophen 650 mg 1,300 mg PO DIRECTED PRN Pain 07/19/23 09/22/23 History tablet,extended release lorazepam 0.5 mg tablet 0.5 mg PO BID PRN Anxiety 07/19/23 09/22/23 History magnesium oxide 500 mg capsule 500 mg PO DAILY 09/07/23 09/22/23 History potassium 99 mg tablet 99 mg PO DAILY 09/07/23 09/22/23 History risperidone 2 mg tablet 2 mg PO HS 09/14/23 09/22/23 History doxycycline hyclate 100 mg capsule 100 mg PO BID 5 days #11 caps 09/23/23 Rx Hospital Stay Data Consultations 09/22/23 20:29 ED Decision to Admit Stat Diagnostic Imagining Performed 09/22/23 18:32 CT Abd and Pelvis [CT abd pelvis wo con] Stat Pending Results Patient Have Any Pending Studies at Discharge: No Discharge Instructions Given to Patient (Per Discharging Provider) You were admitted for concerns of urinary tract infection, but noted intolerance to common antibiotics that treat this particular bacteria. After discussing with Infectious disease doctors, it was suggested to trial doxycycline. Please take Doxycycline 100mg two times a day until course complete (5 days). Total Time Total Time Spent Total Time Spent (In Minutes): 35
[2023-09-23] MEDS ORDERED: DAPTOmycin 250 MG in SYRINGE 0 ML IV SCH (18:00)
== END 2023-09-23 09:41 | disposition home or self-care (01) | DRG 690 ==
LOC: ED 18:04 → 3N 21:06
DX: Z85.3 Personal history of malignant neoplasm of breast; F41.9 Anxiety disorder, unspecified; E83.42 Hypomagnesemia; Z90.11 Acquired absence of right breast and nipple; B95.7 Other staphylococcus as the cause of diseases classified elsewhere; F17.210 Nicotine dependence, cigarettes, uncomplicated; K21.9 Gastro-esophageal reflux disease without esophagitis; Z87.440 Personal history of urinary (tract) infections; Z79.899 Other long term (current) drug therapy; F31.9 Bipolar disorder, unspecified; N30.00 Acute cystitis without hematuria

== ENCOUNTER 2024-05-22 17:14 | Inpatient (IN) ==
--- NOTE | 2024-05-22 17:24 | Emergency Department Note ---
History of Present Illness General Chief complaint: Eye Problems Stated complaint: SURGERY IN THE AM, IV ANTIBIOTICS Time Seen by Provider: 05/22/24 17:23 History of Present Illness This is a 34-year-old female that presents to the emergency department via private vehicle with complaints of "right eye infection". The patient was here in the ED just a few hours ago and at that time I had recommended admission. Patient noted that she had to return home to take care of her kids/get them off of the bus but then would return. She returns now to proceed with the plan for admission and surgical intervention. Patient is here for IV antibiotics and operative intervention of the suspected abscess overlying the right supraorbital rim. Please see original HPI from earlier today regarding presentation. Home Medications Medication Instructions Recorded Confirmed Type acetaminophen 650 mg 1,300 mg PO DIRECTED PRN Pain 07/19/23 05/22/24 History tablet,extended release magnesium oxide 500 mg capsule 500 mg PO HS 09/07/23 05/22/24 History potassium gluconate 600 mg (99 mg) 600 mg PO DAILY 10/16/23 05/22/24 History tablet ondansetron 4 mg disintegrating 4 mg PO Q6H PRN nausea and 04/09/24 05/22/24 Rx tablet vomiting #10 tabs lorazepam 1 mg tablet 1 mg PO Q8H PRN anixety 05/22/24 05/22/24 History Allergies Allergy/AdvReac Type Severity Reaction Status Date / Time metoprolol Allergy Severe Anaphylaxis--hot Verified 10/16/23 15:45 flashes, hives nitrofurantoin Allergy Severe DIFFICULTY Verified 10/16/23 15:45 BREATHING sumatriptan Allergy Severe SOB,tachycardia,elevated Verified 10/16/23 15:45 blood pressure Sulfa (Sulfonamide Allergy Intermediate Itching/Hiv Verified 10/16/23 15:45 Antibiotics) es trazodone Allergy Mild ITCHING Verified 10/16/23 15:45 SENSATION adhesive tape AdvReac Mild Skin Verified 10/16/23 15:45 irritation Past Med/Surg History Problem List (Updated 05/22/24 @ 23:18 by Noah Shabazz PA-C) Periorbital cellulitis of right eye (Acute) Cyst of eyelid (Acute) Marijuana use (Acute) Bipolar disorder by history Stimulant use disorder Alcohol use disorder Hidradenitis Depression (Acute) Anxiety (Acute) Chronic low back pain (Acute) Chronic back pain (Chronic) Chronic interstitial cystitis (Acute) Migraine headache (Chronic) Medical History (Updated 05/22/24 @ 23:18 by Noah Shabazz PA-C) Breast cancer Anxiety SVT (supraventricular tachycardia) GERD (gastroesophageal reflux disease) Anemia HX Abscess or cellulitis of groin Endometriosis, pelvic peritoneum Furuncles Hidradenitis (04/02/12) Other and unspecified ovarian cyst (04/02/12) Sacroiliitis Cellulitis of right breast Surgical History H/O: hysterectomy H/O mastectomy History of dilatation and curettage Hx of mastectomy RIGHT-PRECANCEROUS CELLS-3-4 YRS AGO Hx of hysterectomy History of tubal ligation History of tonsillectomy History of tooth extraction Family History Grandmother Diabetes Hypertension Unknown Kidney disease Mother Migraine headache Diabetes Hypertension Father Diabetes Grandfather (Paternal) Prostate cancer Denies family history of Ovarian cancer Myocardial infarction Breast cancer Colorectal cancer Social History Smoking Status: Current every day smoker Tobacco Type: Cigarettes Cigarettes Per Day: 1 pack per day; Second Hand Exposure: No; Do You Dip or Chew Tobacco: No; Tobacco Cessation Education Requested by Patient: No Hx Alcohol Use: No Hx Substance Use: Yes Last Used Substance: Days (ago) Last Used Substance Other:: 05.21.2023 Preferred Language: Scottish Communication Ability: Effective Metallurgical Specialist Required: No Beliefs That Will Affect Care: None marital status: Single Current Living Situation: Spouse current occupational status: employed Other Information That Helps Us Care for You: No Feels Safe at Home: Yes Safety Concerns: Feels Safe At This Time caffeine: Yes Dental Care, Regularly: No Physical Activity Frequency: Does not Exercise Seatbelt Use: always Sunscreen Use: No Gender Identity: Female Assistive Devices: None Review of Systems A total of 10 systems reviewed and were otherwise negative Physical Exam Vital Signs Vital Signs - 24 hr 05/22/24 17:31 05/22/24 18:09 05/22/24 18:09 Temperature 36.8 C Temperature Source Temporal Artery Scan Pulse Rate 79 Pulse Rate [Apical] 80 Pulse Rate from SpO2 Sensor Pulse Rhythm [Apical] Regular Pulse Strength [Apical] Normal Respiratory Rate 14 19 Respiratory Effort / Characteristics Non-Labored Spontaneous Non-Labored Spontaneous Respiratory Depth Normal Normal Respiratory Pattern Regular Blood Pressure 114/74 Blood Pressure [Right Arm] 112/68 Blood Pressure Mean 87 Blood Pressure Mean [Right Arm] 82 Pulse Oximetry 97 98 98 Oxygen Delivery Method Room Air Room Air Room Air Sepsis Recent Fever Within 48 Hours No Sepsis New/Unexplained Change in Mental Status No Sepsis Action Taken by Nursing No Action Required 05/22/24 18:13 05/22/24 18:18 Temperature Temperature Source Pulse Rate 78 71 Pulse Rate [Apical] Pulse Rate from SpO2 Sensor 68 Pulse Rhythm [Apical] Pulse Strength [Apical] Respiratory Rate 13 Respiratory Effort / Characteristics Respiratory Depth Respiratory Pattern Blood Pressure 112/68 Blood Pressure [Right Arm] Blood Pressure Mean 82 Blood Pressure Mean [Right Arm] Pulse Oximetry 99 Oxygen Delivery Method Sepsis Recent Fever Within 48 Hours Sepsis New/Unexplained Change in Mental Status Sepsis Action Taken by Nursing VITAL SIGNS - Vital signs and nursing notes were reviewed. Stable and afebrile. GENERAL - 34-year-old female appearing her stated age who is in no acute distress. Communicates well with provider and answers questions appropriately. SKIN - Erythema and edema to the right upper eyelid/supraorbital region. fluctuance noted. HEAD - NC/AT. EYES - PERRL with EOMI bilaterally. Sclera anicteric. Skin as above. No pain with EOMs. NOSE - Midline and without cyanosis. MOUTH/OROPHARYNX - Without perioral cyanosis. NECK - Neck with FROM. No nuchal rigidity. LUNGS - CTA CARDIAC - RRR EXTREMITIES - No clubbing or peripheral cyanosis. +5/5 strength noted in UE/LE bilaterally. NEUROLOGIC - Cranial nerves II through XII grossly intact. PSYCH -alert, oriented and pleasant on exam. Course Administered Medications Acetaminophen (Acetaminophen 325 Mg Tab) 650 mg PO Q4H PRN PRN Reason: pain/fever Stop: 06/21/24 20:38 Last Admin: 05/22/24 21:12 Dose: 650 mg Documented By: EMY Lorazepam (Lorazepam 1 Mg Tab) 1 mg PO Q8H PRN PRN Reason: anixety Stop: 06/21/24 20:38 Last Admin: 05/22/24 21:13 Dose: 1 mg Documented By: EMY Nicotine (Nicotine 21 Mg/24 Hr Tdsy) 1 patch TD QAM ELIO Stop: 06/21/24 20:38 Last Admin: 05/22/24 22:17 Dose: 1 patch Documented By: EMY Discontinued Medications Ampicillin Sodium/Sulbactam Sodium (Unasyn) 3,000 mg in 100 mls @ 200 mls/hr IV NOW STA Stop: 05/22/24 18:02 Last Infusion: 05/22/24 18:45 Dose: Infused Documented By: Admin: 05/22/24 18:08 Dose: 200 mls/hr Documented By: MARCO ANTONIO Vancomycin HCl 1,250 mg/ (Sodium Chloride) 525 mls @ 200 mls/hr IV NOW ONE Stop: 05/22/24 20:10 Last Infusion: 05/22/24 22:26 Dose: Infused Documented By: Admin: 05/22/24 19:19 Dose: 200 mls/hr Documented By: GASPER Ketorolac Tromethamine (Ketorolac Tromethamine 15 Mg/Ml Vial) 15 mg IV NOW ONE Stop: 05/22/24 21:46 Last Admin: 05/22/24 22:29 Dose: 15 mg Documented By: EMY Morphine Sulfate (Morphine Sulfate 4 Mg/Ml 1 Ml Carp\\Vial) 4 mg IV NOW STA Stop: 05/22/24 17:42 Last Admin: 05/22/24 18:06 Dose: 4 mg Documented By: MARCO ANTONIO Medical Decision Making Laboratory Data 05/22/24 17:50 05/22/24 17:50 Lab Results 05/22/24 Range/Units 17:50 WBC 7.23 (4.8-10.8) K/ul RBC 4.72 (4.20-5.40) M/uL Hgb 12.9 (12.0-16.0) g/dl Hct 40.7 (37.0-47.0) % MCV 86.2 (80.0-100.0) fL MCH 27.3 (25.0-34.0) pg MCHC 31.7 L (32.0-36.0) g/dL RDW Std Deviation 41.9 (36.4-46.3) fL RDW Coeff of Dipika 13.4 (11.5-14.5) % Plt Count 212 (130-400) K/uL MPV 11.6 (9.4-12.4) fL Immature Gran % (Auto) 0.3 % Neut % (Auto) 53.9 % Lymph % (Auto) 37.2 % [place] % (Auto) 5.7 % Eos % (Auto) 2.6 % Baso % (Auto) 0.3 % Neut # (Auto) 3.90 (1.40-6.50) K/uL Lymph # (Auto) 2.69 (1.20-3.40) K/uL [place] # (Auto) 0.41 (0.11-0.59) K/uL Eos # (Auto) 0.19 (0.00-0.50) K/uL Baso # (Auto) 0.02 (0.00-0.20) K/uL Immature Gran # (Auto) 0.02 (0.01-0.20) K/uL Sodium 139 (136-145) mmol/L Potassium 3.5 (3.5-5.1) mmol/L Chloride 109 H (98-107) mmol/L Carbon Dioxide 24 (21-32) mmol/L Anion Gap 6 (3-11) BUN 8 (6-23) mg/dl Creatinine 0.60 (0.6-1.2) mg/dl Est Cr Clr Drug Dosing 123.7 ml/min eGFR 120.72 BUN/Creatinine Ratio 13.3 (10-20) Glucose 102 H (70-99(Fasting)) mg/dl Calcium 9.5 (8.6-10.3) mg/dl Total Bilirubin 0.6 (0.2-1.0) mg/dl AST 20 (13-39) U/L ALT 23 (7-52) U/L Alkaline Phosphatase 67 (34-104) U/L Total Protein 7.5 (6.0-8.3) gm/dl Albumin 4.6 (3.4-5.0) gm/dl Globulin 2.9 (2.5-4.0) gm/dl Albumin/Globulin Ratio 1.6 (0.9-2) MDM Narrative Patient was seen and evaluated as above in room D01. Review was performed of triage nursing notes and vital signs. Patient returns after requesting to be discharged from a visit earlier today noting she had to return home to take care of her kids but returns now to proceed with my recommendation for admission and surgical plan in the a.m. Presentation consistent with that of periorbital cellulitis with suspected abscess. No evidence of orbital cellulitis. IV access was established. Labs are drawn. Examination does reveal left-sided periorbital cellulitis. There is no leukocytosis or concerning anemia. No emergent metabolic disturbance. hCG not obtained noting history of hysterectomy. IV antibiotics ordered. IV analgesia ordered. Case discussed with the hospitalist service. Please refer to further documentation regarding her stay. GCS: 15 In the evaluation and treatment of this patient the following differential diagnoses were entertained: Orbital cellulitis, periorbital cellulitis, abscess, among others. Impression & Plan Periorbital cellulitis of right eye, Cyst of eyelid Discharge Plan Visit Data Chief Complaint: Eye Problems Stated Complaint: SURGERY IN THE AM, IV ANTIBIOTICS ED Provider: Gunner Zurita ED Midlevel Provider: Noah Shabazz Discharge Problem: Periorbital cellulitis of right eye, Cyst of eyelid Patient Disposition: Admitted As Inpatient Discharge Instructions Interventions: ED Discharge Assessment Last Done: 05/22/24 20:00
[2024-05-22] MEDS ORDERED: VANCOMYCIN CONSULT ACTIVE PRN (17:33)
[2024-05-22] MEDS: MoRPHine SULFATE 4 MG/ML 1 ML CARP\\VIAL IV STA (18:06)
[2024-05-22] MEDS: AMPICILLIN/SULBACTAM SOD 3,000 MG/100 ML BAG IV STA (18:08)
[2024-05-22 18:10] LABS: Basophils # (auto) 0.02 K/uL (0.00-0.20); Basophils % (auto) 0.3 %; Eosinophils # (auto) 0.19 K/uL (0.00-0.50); Eosinophils % (auto) 2.6 %; Hematocrit (blood only) 40.7 % (37.0-47.0); Hemoglobin 12.9 g/dl (12.0-16.0); Immature Granulocytes # (auto) 0.02 K/uL (0.01-0.20); Immature Granulocytes % (auto) 0.3 %; Lymphocytes # (auto) 2.69 K/uL (1.20-3.40); Lymphocytes % (auto) 37.2 %; Mean Corpuscular Hemoglobin 27.3 pg (25.0-34.0); Mean Corpuscular Hgb Conc 31.7 g/dL (32.0-36.0); Mean Corpuscular Volume 86.2 fL (80.0-100.0); Mean Platelet Volume 11.6 fL (9.4-12.4); Monocytes # (auto) 0.41 K/uL (0.11-0.59); Monocytes % (auto) 5.7 %; Neutrophils % (auto) 53.9 %; Platelet Count 212 K/uL (130-400); RDW Coefficient of Variation 13.4 % (11.5-14.5); RDW Standard Deviation 41.9 fL (36.4-46.3); Red Blood Count 4.72 M/uL (4.20-5.40); White Blood Count 7.23 K/ul (4.8-10.8)
[2024-05-22 18:27] LABS: Albumin Globulin Ratio 1.6 (0.9-2); Albumin Level 4.6 gm/dl (3.4-5.0); BUN Creatinine Ratio 13.3 (10-20); Bilirubin,Total 0.6 mg/dl (0.2-1.0); Calcium 9.5 mg/dl (8.6-10.3); Creatinine Clr Calc Pharmacy 123.7 ml/min; Globulin 2.9 gm/dl (2.5-4.0); Potassium 3.5 mmol/L (3.5-5.1); Total Protein 7.5 gm/dl (6.0-8.3)
[2024-05-22] MEDS: VANCOMYCIN HCL 1,250 MG in SODIUM CHLORIDE 0.9% 500 ML IV ONE (19:19)
--- NOTE | 2024-05-22 19:56 | History & Physical Report ---
Date of Service May 22, 2024 Assessment & Plan (1) Cyst of eyelid: (2) Periorbital cellulitis of right eye: Plan: Admit to [facility] Patient presenting from home for evaluation of worsening right eyelid erythema and edema. Exam consistent with infected cyst/abscess Case discussed with Dr. Vizcarra by ED who is recommending I&D in OR tomorrow NPO after midnight Note culture from 05/19 - low counts mixed probable skin microbiota S/p Vanco and Unasyn in the ED, will continue with DVT PROPHYLAXIS SCDs Patient seen in collaboration with Dr. Cameron. I spent a total of 60 minutes coordinating, documenting, and providing care for this patient excluding time spent in the performance of separately billed services. This included personally reviewing all current laboratories and imaging studies, medication reconciliation, outpatient chart review, and discussion with specialists. Admission and Anticipated Discharge Date Admission Date: Attending Addendum: Case reviewed with the advanced practitioner. I have personally performed a history and physical examination on the patient. I have reviewed the advanced practitioner's documentation on the date of service referenced in note, and I agree with, and take responsibility for the plan of care. please refer to her notes for full details patient seen and examined, records reviewed by myself as well on exam, patient Seen resting in bed, comfortable, not in distress Minimal discomfort over the right eyelid no other symptoms VS noted and reviewed oriented , not in distress, speaks in sentences with no effort nor accessory muscle use normal rate, regular rhythm, no murmurs clear breath sounds bilaterally non distended, soft, nontender no bipedal edema, erythema, warmth no neuro deficits all labs, imaging noted and reviewed ASSESSMENT AND PLAN> Right eyelid abscess, cellulitis Plan for I&D by Dr. Vizcarra tomorrow Continue vancomycin plus Unasyn other diagnoses and plan of care as per advanced practitioner's notes I spent a total of 35 minutes coordinating, documenting, and providing care for this patient, excluding time spent in the performance of separately billed services or time spent by another provider/QHP. David Cameron MD History of Present Illness Chief Complaint: right eyelid cyst/infection Primary Care Provider: Beverly Hall MD 34-year-old female with PMH SVT, GERD, history of breast cancer s/p right mastectomy, hidradenitis, bipolar disorder, migraines, tobacco abuse, medical marijuana use, and other problems listed below who presents to the ED for evaluation of right eyelid cyst and infection. With patient's history of hidradenitis, she gets recurrent cysts and abscesses. Patient was seen in the ED on 05/20 for right eyelid cyst and infection. She underwent an I&D at that time. Patient declined/ refused antibiotics. Patient presented back to the ED today due to worsening redness and swelling. She denies fevers and chills. Reports she otherwise feels well. Dr. Vizcarra was contacted who recommended I&D in the OR tomorrow. Patient received IV Vanco and IV Unasyn in the ED. She is hemodynamically stable, labs are unremarkable. Allergies Allergy/AdvReac Type Severity Reaction Status Date / Time metoprolol Allergy Severe Anaphylaxis--hot Verified 10/16/23 15:45 flashes, hives nitrofurantoin Allergy Severe DIFFICULTY Verified 10/16/23 15:45 BREATHING sumatriptan Allergy Severe SOB,tachycardia,elevated Verified 10/16/23 15:45 blood pressure Sulfa (Sulfonamide Allergy Intermediate Itching/Hiv Verified 10/16/23 15:45 Antibiotics) es trazodone Allergy Mild ITCHING Verified 10/16/23 15:45 SENSATION adhesive tape AdvReac Mild Skin Verified 10/16/23 15:45 irritation Home Medications Medication Instructions Recorded Confirmed Type acetaminophen 650 mg 1,300 mg PO DIRECTED PRN Pain 07/19/23 05/22/24 History tablet,extended release magnesium oxide 500 mg capsule 500 mg PO HS 09/07/23 05/22/24 History potassium gluconate 600 mg (99 mg) 600 mg PO DAILY 10/16/23 05/22/24 History tablet ondansetron 4 mg disintegrating 4 mg PO Q6H PRN nausea and 04/09/24 05/22/24 Rx tablet vomiting #10 tabs lorazepam 1 mg tablet 1 mg PO Q8H PRN anixety 05/22/24 05/22/24 History Past Med/Surg History Problem List (Updated 05/22/24 @ 19:49 by MARILU Aaron) Periorbital cellulitis of right eye (Acute) Cyst of eyelid (Acute) Marijuana use (Acute) Bipolar disorder by history Stimulant use disorder Alcohol use disorder Hidradenitis Depression (Acute) Anxiety (Acute) Chronic low back pain (Acute) Chronic back pain (Chronic) Chronic interstitial cystitis (Acute) Migraine headache (Chronic) Medical History (Updated 05/22/24 @ 19:49 by MARILU Aaron) Breast cancer Anxiety SVT (supraventricular tachycardia) GERD (gastroesophageal reflux disease) Anemia HX Abscess or cellulitis of groin Endometriosis, pelvic peritoneum Furuncles Hidradenitis (04/02/12) Other and unspecified ovarian cyst (04/02/12) Sacroiliitis Cellulitis of right breast Surgical History H/O: hysterectomy H/O mastectomy History of dilatation and curettage Hx of mastectomy RIGHT-PRECANCEROUS CELLS-3-4 YRS AGO Hx of hysterectomy History of tubal ligation History of tonsillectomy History of tooth extraction Family History Grandmother Diabetes Hypertension Unknown Kidney disease Mother Migraine headache Diabetes Hypertension Father Diabetes Grandfather (Paternal) Prostate cancer Denies family history of Ovarian cancer Myocardial infarction Breast cancer Colorectal cancer Social History Smoking Status: Current every day smoker Tobacco Type: Cigarettes Cigarettes Per Day: 1 pack; Second Hand Exposure: No; Do You Dip or Chew Tobacco: No; Hx Alcohol Use: No Hx Substance Use: Yes Last Used Substance: Days (ago) Last Used Substance Other:: 1 day prior to arrival Preferred Language: Chinese Communication Ability: Effective Drink Mixer Required: No Beliefs That Will Affect Care: None marital status: Single Current Living Situation: Spouse current occupational status: employed Feels Safe at Home: Yes caffeine: Yes Dental Care, Regularly: No Physical Activity Frequency: Does not Exercise Seatbelt Use: always Sunscreen Use: No Gender Identity: Female Assistive Devices: None Physical Exam Constitutional: WD/WN, vitals as above no acute distress Eyes: + Erythema and edema to right eyelid, no drainage noted, vision intact ENMT: external ear and nose normal, oropharynx normal Respiratory: normal respiratory effort, lungs clear to auscultation Cardiovascular: Rate/Rhythm: regular rate and regular rhythm Vessels: normal peripheral pulses Extremities: no edema Gastrointestinal (Abdomen): normal bowel sounds, soft, nontender, no hepatosplenomegaly Musculoskeletal: no cyanosis or clubbing, extremities motor strength 5/5 Skin: no rashes, warm and dry Neurologic: PERRL, EOMI, accommodation nl, no face palsy, no dysarthria Psychiatric: A+Ox3, euthymic affect Results & Data Results & Data Vital Signs (Past 12 Hours) Vital Signs Temp Pulse Pulse Resp BP BP Pulse Ox 05/22/24 18:18 71 13 112/68 99 05/22/24 18:13 78 05/22/24 18:09 98 05/22/24 18:09 80 19 112/68 98 05/22/24 17:31 36.8 C 79 14 114/74 97 O2 Del Method 05/22/24 18:18 05/22/24 18:13 05/22/24 18:09 Room Air 05/22/24 18:09 Room Air 05/22/24 17:31 Room Air Laboratory Results Short CBC 05/22/24 Range/Units 17:50 WBC 7.23 (4.8-10.8) K/ul Hgb 12.9 (12.0-16.0) g/dl Hct 40.7 (37.0-47.0) % Plt Count 212 (130-400) K/uL BMP 05/22/24 17:50 Sodium 139 Potassium 3.5 Chloride 109 H Carbon Dioxide 24 BUN 8 Creatinine 0.60 Glucose 102 H Calcium 9.5 Liver Function 05/22/24 Range/Units 17:50 Total Bilirubin 0.6 (0.2-1.0) mg/dl AST 20 (13-39) U/L ALT 23 (7-52) U/L Alkaline Phosphatase 67 (34-104) U/L Albumin 4.6 (3.4-5.0) gm/dl Code Status & VTE Plan VTE Prophylaxis Plan VTE Prophylaxis will be ordered: Yes (1) Cyst of eyelid Eyelid: upper Laterality: right Qualified Code(s): H02.821 - Cysts of right upper eyelid
[2024-05-22] MEDS ORDERED: AMPICILLIN/SULBACTAM SOD 3,000 MG/100 ML BAG IV SCH (21:00)
[2024-05-22] MEDS: ACETAMINOPHEN 325 MG TAB PO PRN (21:12)
[2024-05-22] MEDS: LORazepam 1 MG TAB PO PRN (21:13)
[2024-05-22] MEDS ORDERED: KETOROLAC TROMETHAMINE 15 MG/ML VIAL IV PRN (21:45)
[2024-05-22] MEDS: NICOTINE 21 MG/24 HR TDSY TD SCH (22:17)
[2024-05-22] MEDS: KETOROLAC TROMETHAMINE 15 MG/ML VIAL IV ONE (22:29)
[2024-05-23] MEDS: AMPICILLIN/SULBACTAM SOD 3,000 MG/100 ML BAG IV SCH (00:34)
[2024-05-23] MEDS: traMADol HCL 50 MG TABLET PO PRN (01:12)
[2024-05-23] MEDS: VANCOMYCIN HCL 1,500 MG in SODIUM CHLORIDE 0.9% 500 ML IV ONE (07:37)
[2024-05-23 09:37] LABS: Hematocrit (blood only) 38.2 % (37.0-47.0); Hemoglobin 12.1 g/dl (12.0-16.0); Mean Corpuscular Hemoglobin 27.9 pg (25.0-34.0); Mean Corpuscular Hgb Conc 31.7 g/dL (32.0-36.0); Mean Platelet Volume 12.3 fL (9.4-12.4); Platelet Count 195 K/uL (130-400); RDW Coefficient of Variation 13.7 % (11.5-14.5); RDW Standard Deviation 44.3 fL (36.4-46.3); Red Blood Count 4.34 M/uL (4.20-5.40); White Blood Count 5.59 K/ul (4.8-10.8)
[2024-05-23 09:58] LABS: BUN Creatinine Ratio 17.5 (10-20); Calcium 8.4 mg/dl (8.6-10.3); Creatinine Clr Calc Pharmacy 130.2 ml/min; Potassium 3.8 mmol/L (3.5-5.1)
--- NOTE | 2024-05-23 10:44 | Oral/Maxillofacial Consult ---
Date of Consultation May 23, 2024 History of Present Illness Attending Physician: Usama Martino MD History of Present Illness Maximum Pain Intensity: 10 This is a 34-year-old female that presents to the emergency department via priv ate vehicle with complaints of "right eye pain". The patient notes a cyst within the right upper eyelid region that is now infected. The patient states this has been ongoing for the past week. Cyst has been present for months if not years but became red and swollen over the past week. She notes she was here in the ED about 3 days ago and I&D was performed via needle and she notes progressive worsening of symptoms overall. No fevers. No vision change. The eye itself is not painful. She is not currently on antibiotics. Given the severity of pain and increasing swelling admission and IV antibiotics is medically necessary. I will plan to due an I&D in OR with GA today at 1 pm. I will see Ashlee pre-op and review the surgery and risks of: Post-op pain, swelling, re infection, IV antibiotics until improvement then oral antibiotics. scar, further surgery if needed, follow up We will sign consent and then go to OR for the I&D with culture. No eye issues only upper lip, inferior to eyebrow, pre tarsal plate infection, suspect staph or MRSA. The lesion started as a small dermoid lesion just below the right eyebrow and developed into a full blown infection. Of interest Ashlee also has a similar dermoid on the skin at right hip area below the waist, I will do an excision of this lesion to prevent development into an infection Reviewed the surgery plan I and D and excision Allergies Allergy/AdvReac Type Severity Reaction Status Date / Time metoprolol Allergy Severe Anaphylaxis--hot Verified 10/16/23 15:45 flashes, hives nitrofurantoin Allergy Severe DIFFICULTY Verified 10/16/23 15:45 BREATHING sumatriptan Allergy Severe SOB,tachycardia,elevated Verified 10/16/23 15:45 blood pressure Sulfa (Sulfonamide Allergy Intermediate Itching/Hiv Verified 10/16/23 15:45 Antibiotics) es trazodone Allergy Mild ITCHING Verified 10/16/23 15:45 SENSATION adhesive tape AdvReac Mild Skin Verified 10/16/23 15:45 irritation Home Medications Medication Instructions Recorded Confirmed Type acetaminophen 650 mg 1,300 mg PO DIRECTED PRN Pain 07/19/23 05/22/24 History tablet,extended release magnesium oxide 500 mg capsule 500 mg PO HS 09/07/23 05/22/24 History potassium gluconate 600 mg (99 mg) 600 mg PO DAILY 10/16/23 05/22/24 History tablet ondansetron 4 mg disintegrating 4 mg PO Q6H PRN nausea and 04/09/24 05/22/24 Rx tablet vomiting #10 tabs lorazepam 1 mg tablet 1 mg PO Q8H PRN anixety 05/22/24 05/22/24 History Patient History Medical History Breast cancer Anxiety SVT (supraventricular tachycardia) GERD (gastroesophageal reflux disease) Anemia HX Abscess or cellulitis of groin Endometriosis, pelvic peritoneum Furuncles Hidradenitis (04/02/12) Other and unspecified ovarian cyst (04/02/12) Sacroiliitis Cellulitis of right breast Surgical History H/O: hysterectomy H/O mastectomy History of dilatation and curettage Hx of mastectomy RIGHT-PRECANCEROUS CELLS-3-4 YRS AGO Hx of hysterectomy History of tubal ligation History of tonsillectomy History of tooth extraction Family History Grandmother Diabetes Hypertension Unknown Kidney disease Mother Migraine headache Diabetes Hypertension Father Diabetes Grandfather (Paternal) Prostate cancer Denies family history of Ovarian cancer Myocardial infarction Breast cancer Colorectal cancer Social History Smoking Status: Current every day smoker Tobacco Type: Cigarettes Cigarettes Per Day: 1 pack per day; Second Hand Exposure: No; Do You Dip or Chew Tobacco: No; Tobacco Cessation Education Requested by Patient: No Hx Alcohol Use: No Hx Substance Use: Yes Last Used Substance: Days (ago) Last Used Substance Other:: 05.21.2023 Preferred Language: Singaporean Communication Ability: Effective Gynecology Teacher Required: No Beliefs That Will Affect Care: None marital status: Single Current Living Situation: Spouse current occupational status: employed Other Information That Helps Us Care for You: No Feels Safe at Home: Yes Safety Concerns: Feels Safe At This Time caffeine: Yes Dental Care, Regularly: No Physical Activity Frequency: Does not Exercise Seatbelt Use: always Sunscreen Use: No Gender Identity: Female Assistive Devices: None Results & Data Vital Signs (Past 12 Hours) Vital Signs Temp Pulse Resp BP Pulse Ox O2 Del Method 05/23/24 08:29 36.8 C 62 18 96/60 L 96 Room Air 05/23/24 07:30 Room Air PG Care Time/CCT Total # of Minutes Spent Total Time Spent with Patient: Total time spent is greater than 50% in coordination of care (as documented) at patient's floor/unit and/or counseling patient: Coding Level of Care Code 41197 OFFICE CONSULT LVL 06/15M
[2024-05-23] MEDS ORDERED: LIDOCAINE 2% 2 ML VIAL/AMP(20MG/ML) INFIL ONE (11:20)
[2024-05-23] MEDS ORDERED: ONDANSETRON INJ 2 MG/ML 2 ML VIAL ONE (11:20)
[2024-05-23] MEDS ORDERED: MIDAZOLAM HCL 1 MG/ML 2ML VIAL ONE (11:20)
[2024-05-23] MEDS ORDERED: PROPOFOL IV EMULSION 10 MG/ML 20 ML VIAL IV ONE (11:20)
[2024-05-23] MEDS ORDERED: fentaNYL citrate PF 100 MCG/2 ML VIAL ONE (11:20)
[2024-05-23] MEDS ORDERED: DEXAMETHASONE SOD INJ 4 MG/ML VIAL ONE (11:20)
--- NOTE | 2024-05-23 11:50 | Pharmacy Report ---
Pharmacy PK ABX Note - Date of Service May 23, 2024 - Assessment and Plan Assessment 34 year old F receiving vancomycin for treatment of infected cyst/abscess of the right eyelid and periorbital cellulitis. Patient has a history of hidradenitis and gets recurrent cysts and abscesses. She was seen in the ED 05/19 for the same thing and she underwent an I&D at that time. She reportedly declined/refused antibiotics at that visit. She reports progressive worsening of symptoms since then. * Preliminary right eye culture from 05/19 just shows low counts mixed probable skin microbiota * I&D scheduled for this afternoon Day # 2 of antimicrobial therapy. Plan Vancomycin * Loading dose: 1250 mg IV in the ED 05/22 at 1919, then 1500mg iv x 1 on 05/23 at 0737 * Maintenance dose: 1000 mg IV every 8 hours * Regimen is predicted to achieve target AUC/LIZ of 400-600 mg/L.hr * Random level ordered for: 05/24/24 at 0900 Pharmacy will continue to follow and will adjust dose/frequency as necessary. Thank you. Pharmacy has transitioned to AUC monitoring for vancomycin. AUC/LIZ is the preferred PK/PD target and is associated with decreased risk of nephrotoxicity compared to traditional trough targets.
[2024-05-23] MEDS ORDERED: ePHEDrine sulfate 50 MG/ML AMP IV PRN (12:19)
[2024-05-23] MEDS ORDERED: ATROPINE SULFATE 0.1 MG/ML 10ML SYR IV PRN (12:19)
[2024-05-23] MEDS ORDERED: fentaNYL citrate PF 100 MCG/2 ML VIAL IV PRN (12:19)
[2024-05-23] MEDS ORDERED: ONDANSETRON INJ 2 MG/ML 2 ML VIAL IV PRN (12:19)
--- NOTE | 2024-05-23 12:19 | Anesthesiology Consultation ---
Date of Service May 23, 2024 Assessment & Plan Chart Review Chart Review: Acceptable Risk for Surgery and Patient NOT seen in Pre Admission Testing Consults Requested none History Surgery Operation Date: 05/23/24 09:40 Proposed Procedures p Right Upper Eyelid Incision and Drainage - Juan C Vizcarra DMD Height/Weight Height: 5 ft 6 in Weight: 67.188 kg Allergies Allergy/AdvReac Type Severity Reaction Status Date / Time metoprolol Allergy Severe Anaphylaxis--hot Verified 10/16/23 15:45 flashes, hives nitrofurantoin Allergy Severe DIFFICULTY Verified 10/16/23 15:45 BREATHING sumatriptan Allergy Severe SOB,tachycardia,elevated Verified 10/16/23 15:45 blood pressure Sulfa (Sulfonamide Allergy Intermediate Itching/Hiv Verified 10/16/23 15:45 Antibiotics) es trazodone Allergy Mild ITCHING Verified 10/16/23 15:45 SENSATION adhesive tape AdvReac Mild Skin Verified 10/16/23 15:45 irritation Medications Home Medications Medication Instructions Recorded Confirmed Last Taken acetaminophen 650 mg 1,300 mg PO DIRECTED PRN Pain 07/19/23 05/22/24 09/22/23 19:00 tablet,extended release magnesium oxide 500 mg capsule 500 mg PO HS 09/07/23 05/22/24 10/15/23 potassium gluconate 600 mg (99 mg) 600 mg PO DAILY 10/16/23 05/22/24 10/15/23 tablet ondansetron 4 mg disintegrating 4 mg PO Q6H PRN nausea and 04/09/24 05/22/24 Unknown tablet vomiting #10 tabs lorazepam 1 mg tablet 1 mg PO Q8H PRN anixety 05/22/24 05/22/24 Unknown Active Medications Generic Name Dose Route Start Last Admin Trade Name Freq PRN Reason Stop Dose Admin Acetaminophen 650 mg 05/22/24 20:39 05/23/24 08:36 Acetaminophen 325 Mg Tab PO 06/21/24 20:38 650 mg Q4H PRN Administration pain/fever Ampicillin Sodium/Sulbactam Sodium 3,000 mg in 100 mls @ 200 mls/hr 05/23/24 00:00 05/23/24 12:08 Unasyn IV 05/30/24 00:00 200 mls/hr Q6H ELIO Administration Lorazepam 1 mg 05/22/24 20:39 05/22/24 21:13 Lorazepam 1 Mg Tab PO 06/21/24 20:38 1 mg Q8H PRN Administration anixety Miscellaneous 1 each 05/23/24 08:59 05/23/24 08:46 Remove Nicoderm Patch N/A 06/22/24 08:58 1 each [id number] ELIO Administration Nicotine 1 patch 05/22/24 20:39 05/23/24 08:46 Nicotine 21 Mg/24 Hr Tdsy TD 06/21/24 20:38 Not Given QAM ELIO Tramadol HCl 25 - 50 mg 05/22/24 21:46 05/23/24 10:19 Tramadol Hcl 50 Mg Tablet PO 06/21/24 21:45 50 mg Q4H PRN Administration Pain Past Medical History Medical History Breast cancer Anxiety SVT (supraventricular tachycardia) GERD (gastroesophageal reflux disease) Anemia HX Abscess or cellulitis of groin Endometriosis, pelvic peritoneum Furuncles Hidradenitis (04/02/12) Other and unspecified ovarian cyst (04/02/12) Sacroiliitis Cellulitis of right breast Past Family History Family History Grandmother Diabetes Hypertension Unknown Kidney disease Mother Migraine headache Diabetes Hypertension Father Diabetes Grandfather (Paternal) Prostate cancer Denies family history of Ovarian cancer Myocardial infarction Breast cancer Colorectal cancer Past Surgical History Surgical History H/O: hysterectomy H/O mastectomy History of dilatation and curettage Hx of mastectomy RIGHT-PRECANCEROUS CELLS-3-4 YRS AGO Hx of hysterectomy History of tubal ligation History of tonsillectomy History of tooth extraction Social History Smoking Status: Current every day smoker tobacco type: cigarettes Smoking cigarettes per day: 1 pack per day Do You Dip or Chew Tobacco: No Hx Alcohol Use: No Alcohol type: hard liquor Hx Substance Use: Yes substance use type: marijuana Last Used Substance: Days (ago) Last Used Substance Other:: 05.21.2023 Physical Exam Vital Signs Last Vital Signs Temp 36.8 C 05/23/24 08:29 Pulse 62 05/23/24 08:29 Resp 18 05/23/24 08:29 BP 96/60 L 05/23/24 08:29 Pulse Ox 96 05/23/24 08:29 O2 Del Method Room Air 05/23/24 08:29 Testing Laboratory Results 05/23/24 07:58 05/23/24 07:58 Electrocardiogram Date: 04/09/24 Findings: + NSR @
[2024-05-23] MEDS: LACTATED RINGER'S 1,000 ML IV SCH (12:45)
--- NOTE | 2024-05-23 13:07 | Hospitalist Progress Note ---
Date of Service May 23, 2024 Assessment & Plan (1) Cyst of eyelid: Plan Cyst of Rt eyelid: Periorbital cellulitis of right eye: Patient presenting from home for evaluation of worsening right eyelid erythema and edema. Exam consistent with infected cyst/abscess Case discussed with Dr. Vizcarra by ED who is recommending I&D in OR today Can resume diet after I and D. Note culture from / - low counts mixed probable skin microbiota S/p Vanco and Unasyn in the ED, will continue with same, f/u on operative culture. DVT PROPHYLAXIS SCDs Admission and Anticipated Discharge Date Admission Date: May 22, 2024 Subjective Patient was seen and examined at bedside. Patient was lying in bed, on room air, NAD, resting comfortably. Patient's at bedside was also updated on plan of care, they voiced understanding. Patient denies any pain during movement of eyes while following tip of finger, but does have some pressure sensation over the right lead. Patient is n.p.o. for possible I&D later in the day, denies any new medical issues. Physical Exam 2 Physical Exam: Constitutional: WD/WN, vitals as a rachel no acute dis tress Eyes: + Erythema and edema to right ey elid, no drainage noted, vision in tact, no ophthalmo plegia ENMT: external ear and n ose normal, oropha rynx normal Respiratory: normal respiratory effort, lungs belkys ar to auscultation Cardiovascular: Rate/Rhythm: regul ar rate and regula r rhythm Vessels: normal peripheral pulses Extremiti es: no edema Gastrointestinal ( Abdomen): normal bowel sound s, soft, nontender , no hepatosplenom egaly Musculoskeletal: no cyanosis or clu bbing, extremities motor strength 5/ 5 Skin: no rashes, warm an d dry Neurologic: PERRL, EOMI, accom modation nl, no fa ce palsy, no dysar thria Psychiatric: A+Ox3, euthymic af fect Results & Data Results & Data Vital Signs (Past 12 Hours) Vital Signs Temp Pulse Pulse Resp BP Pulse Ox O2 Del Method 05/23/24 12:37 36.8 C 60 20 103/69 99 Room Air 05/23/24 08:29 36.8 C 62 18 96/60 L 96 Room Air 05/23/24 07:30 Room Air
--- NOTE | 2024-05-23 13:12 | History & Physical Bridge Note ---
Date of Service May 23, 2024 History & Physical Bridge Note I have examined the patient, reviewed the History & Physical and in the interval since the performance of the History & Physical I have noted the following changes of clinical significance: no changes noted Plan I and D right eyebrow and excision right hip area dermoid cyst
[2024-05-23] MEDS ORDERED: DexMEDEtomidine HCL IV 100 MCG/ML VIAL IV ONE (13:21)
[2024-05-23] MEDS ORDERED: ePHEDrine sulfate 50 MG/ML AMP ONE (13:51)
[2024-05-23] MEDS ORDERED: ARTIFICIAL TEARS OP OINT 3.5 GM TUBE ONE (13:55)
[2024-05-23] MEDS: BUPIVACAINE/EPINEPHRINE 0.5% 1:200,000 1.8 ML CARP ONE (14:15)
[2024-05-23] MEDS: STERILE IRRIGATING OPTH SOLUTION (BSS) 15ML ONE (14:15)
[2024-05-23] MEDS: BUPIVACAINE/EPINEPHRINE 0.5% MPF 1:200,000 30 ML VIAL ONE ×2 (14:15)
--- NOTE | 2024-05-23 14:22 | Post Operative Brief Note ---
PG Immediate Post Op with CF Date of Surgery May 23, 2024 Pre & Post Diagnosis Operation Date: 05/23/24 09:40 Pre-Op Diagnosis: Right eyebrow and right hip area cyst Post-Op Diagnosis: Right eyebrow and right hip area cyst I identified the patient and participated in the time-out.: Yes Procedure Operation Date: 05/23/24 09:40 Actual Procedures p Incision and Drainage of Right Eyebrow Cyst and Right Hip Area Cyst (Right) - Juan C Vizcarra DMD Surgeon Juan C Vizcarra, ALEYDA Plaster Patternmaker none Estimated Blood Loss 1 Findings Consistent with Post-Op Diagnosis infected dermoid cyst upper eye lid Dermoid cyst right hip Specimens Specimen Description: A. Sebaceous cyst right hip 1. Right eyelid I&D for culture Complications none Disposition Accompanied Patient To Recovery: Yes
--- NOTE | 2024-05-23 14:57 | Anesthesiology Progress Note ---
Date of Service May 23, 2024 Anesthesia Post Procedure Vital Signs Vital Signs: Temp Pulse Pulse Pulse Resp BP BP 05/23/24 14:50 55 L 16 88/51 L 05/23/24 14:40 57 L 15 86/48 L 05/23/24 14:30 54 L 14 92/48 L 05/23/24 14:20 36.1 C L 66 14 91/59 L 05/23/24 12:37 36.8 C 60 20 103/69 05/23/24 08:29 36.8 C 62 18 96/60 L 05/23/24 07:30 05/22/24 21:12 05/22/24 20:30 36.5 C 72 18 128/61 05/22/24 19:42 64 19 114/74 05/22/24 19:09 66 17 05/22/24 18:18 71 13 112/68 05/22/24 18:13 78 05/22/24 18:09 05/22/24 18:09 80 19 112/68 05/22/24 17:31 36.8 C 79 14 114/74 Pulse Ox O2 Del Method 05/23/24 14:50 93 Room Air 05/23/24 14:40 95 Room Air 05/23/24 14:30 98 Room Air 05/23/24 14:20 95 Room Air 05/23/24 12:37 99 Room Air 05/23/24 08:29 96 Room Air 05/23/24 07:30 Room Air 05/22/24 21:12 Room Air 05/22/24 20:30 94 Room Air 05/22/24 19:42 99 05/22/24 19:09 98 05/22/24 18:18 99 05/22/24 18:13 05/22/24 18:09 98 Room Air 05/22/24 18:09 98 Room Air 05/22/24 17:31 97 Room Air Pain Intensity Right Eye: Pain Intensity: 10 Transfer of Care Handoff Completed per policy Notes Mental Status: alert / awake / arousable Patient Amnestic to Procedure: Yes Nausea / Vomiting: adequately controlled Pain: adequately controlled Airway Patency, RR, SpO2: stable & adequate BP & HR: stable & adequate Hydration State: stable & adequate Anesthetic Complications: no major complications apparent and Pt Satisfied with anesthetic care
[2024-05-23] MEDS: VANCOMYCIN HCL 1,000 MG/270 ML BAG IV SCH (19:38)
[2024-05-24 06:51] LABS: Hematocrit (blood only) 36.5 % (37.0-47.0); Hemoglobin 11.9 g/dl (12.0-16.0); Mean Corpuscular Hemoglobin 28.2 pg (25.0-34.0); Mean Corpuscular Hgb Conc 32.6 g/dL (32.0-36.0); Mean Corpuscular Volume 86.5 fL (80.0-100.0); Mean Platelet Volume 11.9 fL (9.4-12.4); Platelet Count 187 K/uL (130-400); RDW Coefficient of Variation 13.4 % (11.5-14.5); RDW Standard Deviation 41.9 fL (36.4-46.3); Red Blood Count 4.22 M/uL (4.20-5.40); White Blood Count 13.63 K/ul (4.8-10.8)
[2024-05-24 07:13] LABS: BUN Creatinine Ratio 9.8 (10-20); Calcium 8.8 mg/dl (8.6-10.3); Creatinine Clr Calc Pharmacy 145.5 ml/min; Potassium 3.9 mmol/L (3.5-5.1)
[2024-05-24 08:25] VITALS: RESP 18; TEMP 97.5; O2SAT 97
[2024-05-24] MEDS ORDERED: VANCOMYCIN LEVEL ONE (09:00)
--- NOTE | 2024-05-24 10:55 | Oral/Maxillofacial Progress Nt ---
Date of Service May 24, 2024 Assessment & Plan Admission and Anticipated Discharge Date Admission Date: May 22, 2024 Subjective Post Op infection evaluation 24 hours The infected area has responded very well --right eye lid Swelling is gone and the tissue is almost back to normal in size and texture. No further drainage is noted. Cultures pending Infection has responded very well to the antibiotics and the I and D. I requested that the patient continue with massage, ice and wound care. POST OP NOTE: excision of the right hip lesion The patient did very well post operatively, healing is excellent. Dressing is place, sutures in place, no swelling or ecchymosis noted Overall: Excellent response from recent surgery RTC MAY 29 AT 4 PM FOR SUTURE REMOVAL Results & Data Vital Signs (Past 12 Hours) Vital Signs Temp Pulse Resp BP BP Pulse Ox O2 Del Method 05/24/24 08:24 36.4 C L 76 18 105/71 97 Room Air 05/24/24 04:12 36.8 C 78 16 92/61 L 95 Room Air 05/24/24 00:33 36.9 C 83 16 100/62 98 Room Air PG Care Time/CCT Total # of Minutes Spent Total Time Spent with Patient: Total time spent is greater than 50% in coordination of care (as documented) at patient's floor/unit and/or counseling patient: Coding Level of Care Code None
[2024-05-24 11:05] VITALS: BP 92/61; PULSE 70
--- NOTE | 2024-05-24 11:21 | Discharge Summary ---
Date of Service May 24, 2024 Admission HPI Per Admitting Provider 34-year-old female with PMH SVT, GERD, history of breast cancer s/p right mastectomy, hidradenitis, bipolar disorder, migraines, tobacco abuse, medical marijuana use, and other problems listed below who presents to the ED for evaluation of right eyelid cyst and infection. With patient's history of hidradenitis, she gets recurrent cysts and abscesses. Patient was seen in the ED on 05/20 for right eyelid cyst and infection. She underwent an I&D at that time. Patient declined/ refused antibiotics. Patient presented back to the ED today due to worsening redness and swelling. She denies fevers and chills. Reports she otherwise feels well. Dr. Vizcarra was contacted who recommended I&D in the OR tomorrow. Patient received IV Vanco and IV Unasyn in the ED. She is hemodynamically stable, labs are unremarkable. Admission Exam Per Admitting Provider Constitutional: WD/WN, vitals as above no acute distress Eyes: + Erythema and edema to right eyelid, no drainage noted, vision intact ENMT: external ear and nose normal, oropharynx normal Respiratory: normal respiratory effort, lungs clear to auscultation Cardiovascular: Rate/Rhythm: regular rate and regular rhythm Vessels: normal peripheral pulses Extremities: no edema Gastrointestinal (Abdomen): normal bowel sounds, soft, nontender, no hepatosplenomegaly Musculoskeletal: no cyanosis or clubbing, extremities motor strength 5/5 Skin: no rashes, warm and dry Neurologic: PERRL, EOMI, accommodation nl, no face palsy, no dysarthria Psychiatric: A+Ox3, euthymic affect Principal Diagnosis RIGHT EYE PERIORBITAL CELLULITIS Discharge Exam Constitutional: WD/WN, vitals as above no acute distress Eyes: suture to right eyelid, no drainage noted, erythema and swelling has improved significantly, vision intact, no ophthalmoplegia ENMT: external ear and nose normal, oropharynx normal Respiratory: normal respiratory effort, lungs clear to auscultation Cardiovascular: Rate/Rhythm: regular rate and regular rhythm Vessels: normal peripheral pulses Extremities: no edema Gastrointestinal (Abdomen): normal bowel sounds, soft, nontender, no hepatosplenomegaly Musculoskeletal: no cyanosis or clubbing, extremities motor strength 5/5 Skin: no rashes, warm and dry Neurologic: PERRL, EOMI, accommodation nl, no face palsy, no dysarthria Psychiatric: A+Ox3, euthymic affect Discharge Data Allergies Allergy/AdvReac Type Severity Reaction Status Date / Time metoprolol Allergy Severe Anaphylaxis--hot Verified 10/16/23 15:45 flashes, hives nitrofurantoin Allergy Severe DIFFICULTY Verified 10/16/23 15:45 BREATHING sumatriptan Allergy Severe SOB,tachycardia,elevated Verified 10/16/23 15:45 blood pressure Sulfa (Sulfonamide Allergy Intermediate Itching/Hiv Verified 10/16/23 15:45 Antibiotics) es trazodone Allergy Mild ITCHING Verified 10/16/23 15:45 SENSATION adhesive tape AdvReac Mild Skin Verified 10/16/23 15:45 irritation Consultations 05/22/24 17:51 ED Decision to Admit Stat 05/22/24 20:39 Consult Oromaxillofacial Surgery Routine Procedures Performed Operation Date: 05/23/24 09:40 Actual Procedures p Incision and Drainage of Right Eyebrow Cyst and Right Hip Area Cyst (Right) - Juan C Vizcarra, DMD Hospital Course (1) Cyst of eyelid: Plan Cyst of Rt eyelid: Periorbital cellulitis of right eye: Patient presenting from home for evaluation of worsening right eyelid erythema and edema. Exam consistent with infected cyst/abscess d/w Dr Vizcarra, plan for dc on augmentin and close f/u w/ [facility] on dc. Pt's right eye swelling, pain, erythema has significantly improved. Pt advised to f/u on final results of operative culture with her PCP office w/in a week time. DVT PROPHYLAXIS SCDs Home Health Attestation I certify that this patient is under my care and that I, or a physicians mail handler assistant working with me, had a face to-face encounter that meets the home health [id number] encounter requirements with this patient. The encounter with the patient was in whole, or in part, for the following medical condition, which is the primary reason for home health care (list medical condition): I certify that, based on my findings, the following services are medically necessary home health services: My clinical findings support the need for the above services because: Further, I certify that my clinical findings support that this patient is homebound (i.e. absences from home require considerable and taxing effort and are for medical reasons or hinduism services or infrequently or of short duration when for other reasons) because: Certification for Home Health Services: Based on the above findings, I certify that this patient is confined to the home and needs intermittent mcc care, physical therapy and/or speech therapy or continues to need occupational therapy. The patient is under my care, and I have initiated the establishment of the plan of care. This patient will be followed by a physician who will periodically review the plan of care. Total Time Total Time Spent Total Time Spent (In Minutes): 35 Discharge Plan Discharge Items Patient Disposition: Home - Self-Care Reason For Visit: RIGHT EYE PERIORBITAL CELLULITIS Discharge Diagnosis: RIGHT EYE PERIORBITAL CELLULITIS Condition on Discharge: Good Activity: Resume your previous activity Lifting: Gradually increase as tolerated Bathing: No limitations Exercise/Sports: Gradually increase as tolerated Driving/Machine Use: No limitations Non-emergency contact: Surgeon Call non-emergency contact if: your pain is worsening, your temperature is above 101.5, your wound has increased redness, your wound has increased drainage and your wound pain has increased Follow-up/Referrals: Beverly Hall MD [Primary Care Provider] - Juan C Vizcarra DMD [Physician] - Diet: Regular Addtl Attending Provider Instructions: SPECIAL CARE INSTRUCTIONS: *It is not uncommon that between day 2-4 that your swelling will be at its worst this is very normal, do not be alarmed. * Keep ice on the side of your face for the next 24 to 36 hours. This will help keep the swelling down. * After 36 hours, apply heat (hot water bottle or heating pad) for the next two days, as often as possible. * You may experience some discomfort for a few days. If pain or swelling increases, Call Dr Vizcarra * Return to the office for a follow up check up on: May 29 at 4 pm * office address--[facility] [place] phone # [phone] Addtl Marketing Communications Coordinator Provider Instructions: Follow up with your PCP office within a week time and follow up on the final results of the operative culture obtained while inpatient. Pending Studies at Discharge: Yes Studies:: results from I&D Stand-Alone Forms: My [facility] InstallFree, Smoking Cessation Medications and DC Order Prescriptions: Continued amoxicillin-pot clavulanate 875-125 mg tablet 1 tab PO Q12H Qty: 20 0RF tramadol 50 mg tablet 50 mg PO Q6H Qty: 10 0RF magnesium oxide 500 mg capsule 500 mg PO HS acetaminophen 650 mg Tablet Extended Release 1,300 mg PO DIRECTED PRN (Reason: Pain) potassium gluconate 600 mg (99 mg) Tablet 600 mg PO DAILY ondansetron 4 mg tablet,disintegrating 4 mg PO Q6H PRN (Reason: nausea and vomiting) Qty: 10 0RF lorazepam 1 mg tablet 1 mg PO Q8H PRN (Reason: anixety) Discharge Orders: Discharge Order (Routine); Ordered 05/24/24 Ordered By: Juan C Vizcarra Admission Data Admit Date/Time: 05/22/24 18:34 Attending Provider: Usama Martino Admit Provider: David Cameron Primary Care Provider: Beverly Hall Other Providers: David Cameron; Juan C Vizcarra Other Interventions: Discharge Summary Assessment (RN) Last Done: 05/24/24 10:55
--- NOTE | 2024-05-25 13:08 | Operative Report ---
PG Post Operative Report Pre & Post Diagnosis Operation Date: 05/23/24 09:40 Pre-Op Diagnosis: Right eyebrow and right hip area cyst Post-Op Diagnosis: Right eyebrow and right hip area cyst I identified the patient and participated in the time-out.: Yes Procedure Operation Date: 05/23/24 09:40 Actual Procedures p Incision and Drainage of Right Eyebrow Cyst and Right Hip Area Cyst (Right) - Juan C Vizcarra DMD Surgeon Juan C Vizcarra, ALEYDA Brick Maker none Estimated Blood Loss 1 Findings Consistent with Post-Op Diagnosis Specimens excision cystic lesion right hip skin and I&D right upper eye lid Complications none Disposition Accompanied Patient To Recovery: Yes Indications significant swelling of the upper right eye lid cystic lesion skin of the right hip area Description of Procedure Description of Procedure p Incision and Drainage right upper eyelid space Abscess; - Juan C Vizcarra DMD Excision of dermoid cyst right hip area ICD 10 H00.031 Cellulitis of upper right eyelid ICD 10 L72.0 Dermoid cyst skin right hip area CPT 14204 I & D of deep subcutaneous abscess of the Supraorbital and upper eye lid CPT 94853 Excision and simple closure lesion (skin) right hip area 2 cm total size Once cleared for surgery general anesthesia was achieved, the eyes were protected by the anesthesia dept criteria. A time out was take for patient ID, antibiotics, equipment and position verification once all agreed the procedure began. Local anesthesia using Marcaine with a vasoconstrictor ( 1.8 ml per site) given into right supraorbital rim and right hip area lesion A LMA was used Once a surgical level of anesthesia was obtained and the local anesthesia was given time for the blocks the surgery was started. I turned my attention first to the excision of the dermoid cyst lesion right hip then to the infection which was located in the in the right periorbital and upper right eye lid. Excision of dermoid cyst right hip slightly below waist. CPT 79967 Excision and simple closure lesion (skin) right hip area 2 cm total size ICD 10 L72.0 Dermoid cyst skin right hip area Patient was concerned that the eye lesion started like the lesion that is present on the hip and requested removal. This was added to the consent This is a small .5 cm skin cyst (dermoid) - patient has a history of these cysts and the development of infections. .5 cm skin mass present on right hip area slightly below the waist line. An elliptical incision was made around the mass. The full thickness skin tissue biopsy of the lesion was taken. The muscle tissue were not involved just the skin and SubQ. The tissue margins were treated with a low dose electrosurgery setting to coagulate any bleeding. The lesion was delivered for pathology evaluation. The tissues were closed with a 4-0 nylon suture. A nice cosmetic closure was obtain of this 2 cm excision site. Stri Strips were placed. I now turned my attention to the infected right eye site. Incision and Drainage right periorbital abscess ICD 10 H00.031 Cellulitis of upper right eyelid CPT 55262 I & D of deep subcutaneous abscess of the Supraorbital and upper eye lid Using a 15 blade an incision was made in the inferior aspect of the upper right eye lid. Once the incision was made a lot of pus extruded from the site. This drainage was cultured for anaerobic and aerobic bacteria. A curved hemostat was carefully placed superior into the infected space to drain the pocket superior to the rim,medical in the medical canthal space and upper lid space. The swollen tissue had multiply sites of pin point fistula with pus oozing out. The tissue quality was poor with areas of skin necrosis. To gain access to the pocket of pus another small incision was made in the area. This allowed further drainage to escape. I palpated the face and cheek area and no further drainage was expressed. The area was irrigated with at least 100 ml of NS solution. The bulk or the swelling was evacuated, I trimmed the devital tissues and approximated the soft tissues closed with a few sutures. To decrease re swelling or bleeding I irrigated site. The eye was protected with eye ointment by anaesthesia. I placed Steril Eye patch and pressure dressing over the right eye to prevent hematoma formation. I inspected the sites to insure all bleeding was controlled The gauze pressure dressings was placed over the right eye All instrument and sponge count was correct. The patient was allowed to awake from the anesthesia. Once full awake the anesthesia tube was removed and the patient was taken to the recovery room with all vital sign stable. The patient tolerated the surgery very well. I will see Ashlee tomorrow before discharge and then follow the patient in my office. Rx and instructions will be given upon discharge. Post op May 29 at 4:15 I attest to the content of the Intraoperative Record and any orders documented therein. Any exceptions are noted below.
== END 2024-05-24 12:52 | disposition home or self-care (01) | DRG 572 ==
LOC: ED 17:14 → 3W 18:34 → SUATTDRO 18:34 → 3W 20:00